=== PATIENT | female | born 1975 | race Caucasian/White ===

== ENCOUNTER 2019-07-24 14:50 | Emergency (ER) | payer OTHER, SELFPAY ==
--- NOTE | ~2019-07-24 | CT_ITS ---
EXAMINATION: CT abdomen pelvis w con DATE: 07/24/2019 16:28 INDICATION: Infection TECHNIQUE: Computed tomography (CT) of the abdomen and pelvis was performed with 100 mL Omnipaque-350 intravenous contrast. Automated exposure control and iterative reconstruction technique were employe d. The dose-length product was 349.16 mGy-cm. COMPARISON: None FINDINGS: Lung bases are clear. Heart size is normal. No pericardial or pleural effusion. Liver, gallbladder, s pleen, pancreas, bilateral adrenal glands and right kidney are normal. 6 mm low-attenuation left aury l cyst. Bowels are normal. The appendix is not visualized. No pericecal inflammatory change to sugges t acute appendicitis. Decompressed bladder, anteverted uterus and bilateral adnexa are unremarkable. No free intraperitoneal gas or fluid. No pathologically enlarged abdominal or pelvic lymphadenopathy. Transitional L5 segment which is sacralized on the left. Moderate to severe lower lumbar facet osteo arthritis. IMPRESSION: 1. No acute intra-abdominal/pelvic process. Reviewed, dictated and finalized at location A.
[2019-07-24 15:21] VITALS: BP 141/104; PULSE 72; RESP 16; TEMP 36.9; O2SAT 99
[2019-07-24 15:23] LABS: Basophils Absolute Auto 0.1 K/mm3 (0.0-0.1); Basophils Percent Auto 0.7 % (0.2-1.2); Eosinophils Percent Auto 0.3 % (0-4.4); Hematocrit 39.4 % (37.0-47.0); Hemoglobin 13.5 g/dL (12.0-15.0); Immature Granulocyte Absolute 0.04 K/mm3 (0.00-0.031); Immature Granulocyte Percent A 0.4 % (0-0.5); Lymphocytes Absolute Auto 1.43 K/mm3 (0.9-3.2); Lymphocytes Percent Auto 13.3 % (18.3-44.2); Mean Corpuscular HGB Conc 34.3 g/dl (32-36); Mean Corpuscular Hemoglobin 29.7 pg (26-34); Mean Corpuscular Volume 86.8 fl (80-100); Mean Platelet Volume 11.1 fl (7.4-10.4); Monocytes Absolute Auto 0.4 K/mm3 (0.1-0.6); Neutrophils Absolute Auto 8.8 K/mm3 (1.3-6.7); Neutrophils Percent Auto 81.3 % (45.5-73.1); Platelet Count Result 299 k/mm3 (150-375); Red Blood Count 4.54 M/mm3 (4.2-5.4); Red Cell Distribution Width 13.3 % (11.5-14.5); White Blood Count 10.8 K/mm3 (4.5-10.0)
[2019-07-24 15:35] LABS: Alanine Aminotransferase 15 U/L (4-35); Albumin Level 4.6 g/dL (3.5-5.1); Alkaline Phosphatase 110 U/L (38-126); Aspartate Amino Transferase 22 U/L (14-36); Bilirubin,Total 0.5 mg/dL (0.2-1.3); Blood Urea Nitrogen 15 mg/dL (7-17); Calcium 9.8 mg/dL (8.4-10.2); Carbon Dioxide 23 mmol/L (22-30); Chloride 108 mmol/L (98-107); Estimated CRCL calculation 83 ml/min; Estimated Glomerular Filt Rate > 60; Glucose 124 mg/dL (65-105); Lipase 31 U/L (23-300); Potassium 3.2 mmol/L (3.4-5.0); Sodium 139 mmol/L (137-145)
[2019-07-24 15:50] LABS: Add Urine Microscopic? YES; Appearance Urine Cloudy (Clear); Bilirubin Urine Negative (Negative); Blood Urine Negative (Negative); Calcium Oxalate Crystals Urine Present /hpf; Color Urine Amber (Yellow); Glucose Urine UA Negative (Negative); Ketones Urine 2+ mg/dL (Negative); Leukocyte Esterase Ur 2+ LEU/UL (Negative); Mucus Urine Heavy /lpf; Nitrate Urine Negative (Negative); Protein Urine 1+ mg/dL (Negative); Specific Grav Ur 1.032 (1.001-1.035); Squamous Epithelial Cell Urine Many /hpf (Few); WBC Urine 21-30 /hpf
--- NOTE | 2019-07-24 16:09 | PC.NURSE ---
called at this time to lab to add on CMP, Lipase, CBCD
--- NOTE | 2019-07-24 16:21 | ED.ABDPAIN ---
HPI - Abdominal Pain General Chief Complaint: Abdominal Pain Stated Complaint: abd pain Time Seen by Provider: 07/24/19 16:00 Source: patient and family Mode of arrival: ambulatory Limitations: no limitations History of Present Illness HPI narrative: 44 years old white female presented to the ED with vomiting and abdominal pain. Patient reports having history of some syndrome causing vomiting 10 years ago, she gets flareups every now and then. Patient denies any fever, chills, diarrhea. History of restless leg syndrome, appendectomy. Patient does not smoke or drink, uses marijuana. MD elicited complaint: abdominal pain Related Data Home Medications Medication Instructions Recorded Confirmed atorvastatin 07/24/19 promethazine 07/24/19 ropinirole mg 07/24/19 ropinirole mg 07/24/19 sumatriptan succinate mg PO 07/24/19 Allergies Allergy/AdvReac Type Severity Reaction Status Date / Time acetaminophen Allergy Mild Itching Verified 12/11/16 16:59 ciprofloxacin Allergy Mild Rash Verified 12/11/16 16:59 hydrocodone Allergy Mild Itching Verified 12/11/16 16:59 sulfamethoxazole Allergy Rash Verified 07/24/19 15:25 [From Bactrim] trimethoprim [From Bactrim] Allergy Rash Verified 07/24/19 15:25 Review of Systems Review of Systems: Narrative: CONSTITUTIONAL: Denies fever, chills, or sweats. EYES: Denies visual changes, redness, or discharge. ENT: Denies rhinorrhea, congestion, sore throat, or otalgia. CARDIOVASCULAR: Denies chest pain, palpitations, or edema. RESPIRATORY: Denies cough or dyspnea. GASTROINTESTINAL: Denies abdominal pain, nausea, vomiting, or diarrhea. GENITOURINARY: Denies dysuria or hematuria. SKIN: Denies rash or itching. MUSCULOSKELETAL: Denies back pain, joint pain, or myalgia. NEUROLOGIC: Denies headache, numbness, or weakness. PSYCHIATRIC: Denies anxiety or depression. Exam Narrative: Exam Narrative: General appearance: Well-developed, well-nourished, laying down in bed, looks comfortable, at the bedside. Skin: Normal color Head: Normocephalic, nontraumatic Eyes: Clear conjunctiva ENT: Oropharynx normal, ears normal, nose normal Neck: Supple, nontender Chest and respiratory: Airway patent, no respiratory distress, no accessory muscle use Heart: Regular rate/rhythm Abdomen: Soft, nontender, no organomegaly, quiet bowel sounds Vascular: Normal peripheral pulses, normal capillary refill. Musculoskeletal: Normal range of motion, nontender back Neurologic: Alert and oriented ?3, [employer] is normal as tested, no gross motor deficit Course Course Emergency Course: Improving Vital Signs Vital signs: Vital Signs Temperature 36.9 C 07/24/19 15:21 Pulse Rate 72 07/24/19 15:21 Respiratory Rate 16 07/24/19 15:21 Blood Pressure 141/104 H 07/24/19 15:21 Pulse Oximetry 99 07/24/19 15:21 Temperature 36.9 C 07/24/19 15:21 Pulse Rate 72 07/24/19 15:21 Respiratory Rate 16 07/24/19 15:21 Blood Pressure 141/104 H 07/24/19 15:21 Pulse Oximetry 99 07/24/19 15:21 MDM - Abdominal Pain MDM Narrative Medical decision making narrative: History of intermittent vomiting, raises the suspicious of cyclic vomiting syndrome. Patient reported getting better and Phenergan and pain medication. My plan to get labs, CT abdomen and pelvis, UA, start IV fluids, Dilaudid, Reglan and Benadryl. Further plan to follow Lab Data Result diagrams: 07/24/19 15:18 07/24/19 15:18 Labs: Lab Results 07/24/19 07/24/19 07/24/19 Range/Units 15:18 15:18 15:37 WBC 10.8 H (4.5-10.0) K/mm3 RBC 4.54 (4.2-5.4) M/mm3 Hgb 13.5 (12.0-15.0) g/dL Hct 39.4 (37.0-47.0) %
[2019-07-24] MEDS: ONDANSETRON INJ 4 MG/2 ML VIAL IV PUSH (16:46)
[2019-07-24] MEDS: HYDROMORPHONE HCL 1 MG/ML INJ 0.5 MG IV PUSH (16:46)
[2019-07-24] MEDS: SODIUM CHLORIDE 0.9% IV 1,000 ML 999 ML IV CONT (16:46)
[2019-07-24] MEDS: METOCLOPRAMIDE HCL INJ 10 MG/2 ML VIAL IV PUSH (16:47)
[2019-07-24] MEDS: POTASSIUM CHLORIDE 20 MEQ TABLET 40 MEQ PO (17:17)
== END 2019-07-24 18:21 | disposition home or self-care (01) ==
PROVIDERS: General Practice; Emergency Provider Emergency Medicine
DX: N39.0 Urinary tract infection, site not specified (principal); R11.10 Vomiting, unspecified
CPT/HCPCS: 36415; 74177; 80053; 81001; 81025; 83690; 85025; 87086; 96361; 96365; 96375; 99284; A9270; J0696; J1170; J1200; J2405; J2765; J7030; Q9967

== ENCOUNTER 2019-07-30 21:30 | Emergency (ER) | payer OTHER, SELFPAY ==
--- NOTE | ~2019-07-30 | CT_ITS ---
EXAMINATION: CT abdomen pelvis w con DATE: 07/31/2019 01:37 INDICATION: Epigastric pain. SMA syndrome. TECHNIQUE: Computed tomography (CT) of the abdomen and pelvis was performed with 100 mL Omnipaque-350 intravenous contrast. Automated exposure control and iterative reconstruction technique were employe d. The dose-length product was 472.58 mGy-cm. COMPARISON: 07/24/2019 FINDINGS: 5 mm subpleural nodule at the right posterior sulcus. Heart size is normal. No pericardial or pleural effusion. Focal hepatic steatosis at the ligamentum teres. 4 mm cyst at the right hepatic lobe. Gall bladder, spleen, pancreas, bilateral adrenal glands and right kidney are normal. 6 mm left renal cyst . Bowels are unremarkable. The appendix is not visualized. No pericecal inflammatory change to sugges t acute appendicitis. Decompressed bladder and anteverted uterus are normal. 2.9 x 2.0 cm septated ri ght ovarian cyst which is new since the prior study. 1.5 cm peripherally enhancing likely corpus lute um cyst at the left ovary. Small amount of likely physiologic free fluid in the pelvis. No abscess or free intraperitoneal gas. No pathologically enlarged abdominal or pelvic lymphadenopathy. Transition al L5 segment which is sacralized on the left. Moderate lower lumbar facet osteoarthritis. IMPRESSION: 1. Small bilateral ovarian cysts and small amount of likely physiologic free fluid in the pelvis. No other acute intra-abdominal/pelvic process. 2. 5 mm right lower lobe nodule. If the patient is low risk for lung cancer, no follow-up is needed. If the patient is high risk (i.e., history of smoking or asbestos or significant radiation exposure), optional follow-up chest CT could be considered at 12 months. Reviewed, dictated and finalized at location A. IMPRESSION: 1. Small bilateral ovarian cysts and small amount of likely physiologic free fl uid in the pelvis. No other acute intra-abdominal/pelvic process. 2. 5 mm right lower lobe nodule. If the patient is low risk for lung cancer, no follow-up is needed. If the patient is high risk (i.e., history of smoking or asbestos or significant radiation exposure), optional follow-up chest CT could be considered at 12 months.
[2019-07-30 21:40] VITALS: BP 143/91; PULSE 68; RESP 18; TEMP 36.3; O2SAT 100
--- NOTE | 2019-07-31 00:02 | ED.GENADULT ---
HPI - General Adult General Chief complaint: Nausea/Vomiting/Diarrhea Stated complaint: vomiting/abd pain Time Seen by Provider: 07/30/19 23:35 History of Present Illness HPI narrative: Patient is a 44-year-old female who presents ER with epigastric pain. 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 Last started having flares 3 years ago but then 1 week ago she began having her pain again. Typically she can take her Zofran and symptoms will go away. Has not been the case this evening. Pain is sharp and nonradiating. No association with eating or drinking. She has recently moved here from [place] and does not have a specialist that she sees. No diarrhea. Related Data Home Medications Medication Instructions Recorded Confirmed atorvastatin 07/24/19 promethazine 07/24/19 ropinirole mg 07/24/19 ropinirole mg 07/24/19 sumatriptan succinate mg PO 07/24/19 Allergies Allergy/AdvReac Type Severity Reaction Status Date / Time acetaminophen Allergy Mild Itching Verified 07/30/19 21:43 ciprofloxacin Allergy Mild Rash Verified 07/30/19 21:43 hydrocodone Allergy Mild Itching Verified 07/30/19 21:43 sulfamethoxazole Allergy Rash Verified 07/30/19 21:43 [From Bactrim] trimethoprim [From Bactrim] Allergy Rash Verified 07/30/19 21:43 Review of Systems Review of Systems: All systems reviewed & are unremarkable except as noted in HPI and below Constitutional: Constitutional: Denies chills, Denies fever(s) and Denies weakness ENT: Denies nasal congestion and Denies sore throat Cardiovascular: Cardiovascular: Denies chest pain and Denies rapid heart rate Respiratory: Respiratory: Denies cough, Denies dyspnea and Denies wheezing Gastrointestinal: Gastrointestinal: Reports abdominal pain, Denies diarrhea, Reports nausea and Reports vomiting Genitourinary: Genitourinary: Denies nocturia and Denies dysuria [facility] Past Medical History Medical History (Updated 07/31/19 @ 02:57 by Ralf Elise MD) SMAS (superior mesenteric artery syndrome) Surgical History Surgical History (Updated 07/31/19 @ 01:12 by Ralf Elise MD) H/O endoscopy History of colonoscopy Social History Social History (Updated 07/31/19 @ 01:12 by Ralf Elise MD) Substance use type: marijuana Exam Narrative: Exam Narrative: GENERAL: Uncomfortable-appearing, well-nourished, and in no acute distress. HEAD: Normocephalic, atraumatic. ENT: Mucous membranes moist. CHEST: Clear to auscultation. No respiratory distress. HEART: Regular rate and rhythm. Normal peripheral pulses. ABDOMEN: Soft, mild tenderness epigastrium without guarding, nondistended, normal active bowel sounds. EXTREMITIES: Normal range of motion. No edema. SKIN: Warm, dry, no rash. NEURO: Alert and oriented x3. Course Course Emergency Course: Informed of results. Discharge home. Vital Signs Vital signs: Vital Signs Temperature 97.3 F L 07/30/19 21:40 Pulse Rate 68 07/30/19 21:40 Respiratory Rate 18 07/30/19 21:40 Blood Pressure 143/91 H 07/30/19 21:40 Pulse Oximetry 100 07/30/19 21:40 Temperature 97.3 F L 07/30/19 21:40 Pulse Rate 74 07/31/19 01:57 Respiratory Rate 16 07/31/19 01:57 Blood Pressure 119/96 H 07/31/19 01:57 Pulse Oximetry 99 07/31/19 01:57 Medical Decision Making Vital Signs Vital Signs: Vital Signs Temperature 97.3 F L 07/30/19 21:40 Pulse Rate 68 07/30/19 21:40 Respiratory Rate 18 07/30/19 21:40 Blood Pressure 143/91 H 07/30/19 21:40 Pulse Oximetry 100 07/30/19 21:40 Temperature 97.3 F L 07/30/19 21:40 Pulse Rate 74 07/31/19 01:57 Respiratory Rate 16 07/31/19 01:57 Blood Pressure 119/96 H 07/31/19 01:57 Pulse Oximetry 99 07/31/19 01:57 Lab Data Result diagrams: 07/31/19 00:24 07/31/19 00:24 Labs: Lab Results 07/31/19 07/31/19 07/31/19 Range/Units 00:24 00:24 00:24 WBC 12.8 H (4
[2019-07-31 00:05] VITALS: BP 149/105; PULSE 68; RESP 17; O2SAT 100
[2019-07-31] MEDS: SODIUM CHLORIDE 0.9% IV 1,000 ML 999 ML IV CONT (00:20)
[2019-07-31] MEDS: MORPHINE SULFATE 4 MG/ML INJ IV PUSH (00:21)
[2019-07-31] MEDS: PROMETHAZINE HCL 25 MG/ML AMPUL 12.5 MG IV PUSH (00:21)
[2019-07-31 00:30] LABS: Basophils Absolute Auto 0.1 K/mm3 (0.0-0.1); Basophils Percent Auto 0.7 % (0.2-1.2); Eosinophils Percent Auto 0.2 % (0-4.4); Hematocrit 41.4 % (37.0-47.0); Hemoglobin 14.1 g/dL (12.0-15.0); Immature Granulocyte Absolute 0.06 K/mm3 (0.00-0.031); Immature Granulocyte Percent A 0.5 % (0-0.5); Lymphocytes Absolute Auto 1.42 K/mm3 (0.9-3.2); Lymphocytes Percent Auto 11.1 % (18.3-44.2); Mean Corpuscular HGB Conc 34.1 g/dl (32-36); Mean Corpuscular Hemoglobin 29.9 pg (26-34); Mean Corpuscular Volume 87.9 fl (80-100); Mean Platelet Volume 11.5 fl (7.4-10.4); Monocytes Absolute Auto 0.6 K/mm3 (0.1-0.6); Monocytes Percent Auto 4.8 % (2.6-8.5); Neutrophils Absolute Auto 10.5 K/mm3 (1.3-6.7); Neutrophils Percent Auto 82.7 % (45.5-73.1); Platelet Count Result 285 k/mm3 (150-375); Red Blood Count 4.71 M/mm3 (4.2-5.4); Red Cell Distribution Width 13.9 % (11.5-14.5); White Blood Count 12.8 K/mm3 (4.5-10.0)
[2019-07-31 00:42] LABS: Potassium 4.1 mmol/L (3.4-5.0)
[2019-07-31 00:45] LABS: Alanine Aminotransferase 16 U/L (4-35); Albumin Level 4.9 g/dL (3.5-5.1); Alkaline Phosphatase 111 U/L (38-126); Aspartate Amino Transferase 26 U/L (14-36); Bilirubin,Total 0.5 mg/dL (0.2-1.3); Blood Urea Nitrogen 16 mg/dL (7-17); Calcium 10.1 mg/dL (8.4-10.2); Carbon Dioxide 24 mmol/L (22-30); Chloride 107 mmol/L (98-107); Estimated CRCL calculation 83 ml/min; Estimated Glomerular Filt Rate > 60; Glucose 147 mg/dL (65-105); Lipase 46 U/L (23-300); Sodium 140 mmol/L (137-145)
[2019-07-31 01:00] VITALS: BP 105/58; PULSE 55; RESP 18; O2SAT 100
[2019-07-31 01:36] LABS: Add Urine Microscopic? YES; Appearance Urine Cloudy (Clear); Bacteria Urine Trace /hpf; Bilirubin Urine Negative (Negative); Blood Urine Negative (Negative); Budding Yeast Urine Present /hpf; Color Urine Yellow (Yellow); Glucose Urine UA Negative (Negative); Ketones Urine 1+ mg/dL (Negative); Leukocyte Esterase Ur Trace LEU/UL (Negative); Mucus Urine Rare /lpf; Nitrate Urine Negative (Negative); Protein Urine 1+ mg/dL (Negative); Specific Grav Ur 1.015 (1.001-1.035); Squamous Epithelial Cell Urine Moderate /hpf (Few); Urobilinogen Urine Negative mg/dL (<2.0)
[2019-07-31 01:57] VITALS: BP 119/96; PULSE 74; RESP 16; O2SAT 99
[2019-07-31] MEDS: ONDANSETRON INJ 4 MG/2 ML VIAL IV PUSH (01:57)
[2019-07-31 03:15] VITALS: BP 119/73; PULSE 78; RESP 16; TEMP 36.6; O2SAT 99
[2019-07-31] MEDS: KETOROLAC 15 MG/ML VIAL (*BKC) IV PUSH (03:15)
== END 2019-07-31 03:16 | disposition home or self-care (01) ==
PROVIDERS: Emergency Provider Emergency Medicine; PCP Physician Assistant
DX: R10.13 Epigastric pain (principal); K55.1 Chronic vascular disorders of intestine; N83.201 Unspecified ovarian cyst, right side
CPT/HCPCS: 36415; 74177; 80053; 81001; 81025; 83605; 83690; 85025; 87086; 96361; 96374; 96375; 99284; J1885; J2270; J2405; J2550; J7030; Q9967

== ENCOUNTER 2019-08-01 13:27 | Emergency (ER) | payer OTHER, SELFPAY ==
[2019-08-01 13:31] VITALS: BP 171/93; PULSE 65; RESP 18; TEMP 36.9; O2SAT 100
[2019-08-01 13:52] LABS: Glucose Point of Care 89 (65-105)
[2019-08-01 13:57] LABS: Basophils Absolute Auto 0.1 K/mm3 (0.0-0.1); Basophils Percent Auto 0.6 % (0.2-1.2); Eosinophils Absolute Auto 0.1 K/mm3 (0-0.3); Eosinophils Percent Auto 0.6 % (0-4.4); Hematocrit 41.9 % (37.0-47.0); Hemoglobin 14.2 g/dL (12.0-15.0); Immature Granulocyte Absolute 0.05 K/mm3 (0.00-0.031); Immature Granulocyte Percent A 0.4 % (0-0.5); Lymphocytes Absolute Auto 1.59 K/mm3 (0.9-3.2); Lymphocytes Percent Auto 12.6 % (18.3-44.2); Mean Corpuscular HGB Conc 33.9 g/dl (32-36); Mean Corpuscular Hemoglobin 29.8 pg (26-34); Mean Platelet Volume 11.3 fl (7.4-10.4); Monocytes Absolute Auto 0.5 K/mm3 (0.1-0.6); Monocytes Percent Auto 4.2 % (2.6-8.5); Neutrophils Absolute Auto 10.3 K/mm3 (1.3-6.7); Neutrophils Percent Auto 81.6 % (45.5-73.1); Platelet Count Result 270 k/mm3 (150-375); Red Blood Count 4.76 M/mm3 (4.2-5.4); White Blood Count 12.6 K/mm3 (4.5-10.0)
[2019-08-01] MEDS: FAMOTIDINE 20 MG/2 ML VIAL IV PUSH (13:58)
[2019-08-01] MEDS: PROCHLORPERAZINE EDISYLATE 10 MG/2 ML VIAL IV PUSH (13:59)
[2019-08-01] MEDS: KETOROLAC 30 MG/ML VIAL (*BKC) IV PUSH (14:00)
[2019-08-01] MEDS: SODIUM CHLORIDE 0.9% IV 1,000 ML 999 ML IV CONT (14:01)
[2019-08-01 14:11] LABS: Alanine Aminotransferase 15 U/L (4-35); Albumin Level 4.6 g/dL (3.5-5.1); Alkaline Phosphatase 98 U/L (38-126); Aspartate Amino Transferase 25 U/L (14-36); Bilirubin,Total 0.5 mg/dL (0.2-1.3); Blood Urea Nitrogen 13 mg/dL (7-17); Calcium 9.2 mg/dL (8.4-10.2); Carbon Dioxide 23 mmol/L (22-30); Chloride 105 mmol/L (98-107); Estimated CRCL calculation 83 ml/min; Estimated Glomerular Filt Rate > 60; Glucose 103 mg/dL (65-105); Lipase 54 U/L (23-300); Potassium 3.2 mmol/L (3.4-5.0); Sodium 136 mmol/L (137-145)
--- NOTE | 2019-08-01 14:21 | ED.ABDPAIN ---
HPI - Abdominal Pain General Chief Complaint: Abdominal Pain Stated Complaint: N/V abd pain Time Seen by Provider: 08/01/19 13:42 Source: patient Mode of arrival: ambulatory Limitations: no limitations History of Present Illness HPI narrative: Patient is a 44-year-old female who returns back to emergency department for evaluation of continued nausea and vomiting had CAT scan imaging in the emergency department which was unremarkable for anything acute no high risk changes in the blood work or imaging patient woke again with continued nausea and vomiting consistent with her superior mesenteric syndrome. Related Data Home Medications Medication Instructions Recorded Confirmed atorvastatin [Lipitor] 10 mg PO 07/24/19 promethazine 07/24/19 ropinirole mg 07/24/19 ropinirole mg 07/24/19 Allergies Allergy/AdvReac Type Severity Reaction Status Date / Time acetaminophen Allergy Mild Itching Verified 08/01/19 13:35 ciprofloxacin Allergy Mild Rash Verified 08/01/19 13:35 hydrocodone Allergy Mild Itching Verified 08/01/19 13:35 sulfamethoxazole Allergy Rash Verified 08/01/19 13:35 [From Bactrim] trimethoprim [From Bactrim] Allergy Rash Verified 08/01/19 13:35 Review of Systems Review of Systems: All systems reviewed & are unremarkable except as noted in HPI and below PMFSH Past Medical History Medical History SMAS (superior mesenteric artery syndrome) Surgical History Surgical History H/O endoscopy History of colonoscopy Social History Social History Substance use type: marijuana Gender identity (if verbalized by the patient): Female Exam Narrative: Exam Narrative: GENERAL: Well-appearing, well-nourished, and in no acute distress. HEAD: Normocephalic, atraumatic. EYES: PERRLA and EOMI. ENT: Nares clear, no rhinorrhea or epistaxis. Mucous membranes moist. NECK: Supple. No adenopathy or masses. CHEST: Clear to auscultation. No respiratory distress. No wheezes rales or rhonchi HEART: Regular rate and rhythm. No murmur heard. Normal peripheral pulses. ABDOMEN: Soft, generalized tenderness no rebound or guarding, nondistended EXTREMITIES: Normal range of motion. No edema. SKIN: Warm, dry, no rash. NEURO: No focal deficits. Alert and oriented x3. Cranial nerves II through XII grossly intact PSYCH: Normal mood and affect. Course Course Emergency Course: Patient in the room in no distress aware of case findings treatment plan and diagnosis agreeing to follow-up as directed Vital Signs Vital signs: Vital Signs Temperature 98.4 F 08/01/19 13:31 Pulse Rate 65 08/01/19 13:31 Respiratory Rate 18 08/01/19 13:31 Blood Pressure 171/93 H 08/01/19 13:31 Pulse Oximetry 100 08/01/19 13:31 Temperature 98.4 F 08/01/19 13:31 Pulse Rate 86 08/01/19 14:56 Respiratory Rate 22 H 08/01/19 14:56 Blood Pressure 148/84 H 08/01/19 14:56 Pulse Oximetry 99 08/01/19 14:56 MDM - Abdominal Pain MDM Narrative Medical decision making narrative: Patient resting comfortably in the room feeling better at this time tolerating p.o. intake afebrile nontoxic-appearing no distress felt appropriate for outpatient reevaluation. Patient given GI and gynecology follow-up. Patient given fluids and Rocephin in the emergency department. Provided with reasons to return Differential Diagnosis Differential diagnosis: Likely abdominal pain, acute appendicitis, calculus of kidney, diverticulitis, endometriosis, gastroenteritis, pancreatitis and small bowel obstruction Lab Data Result diagrams: 08/01/19 13:51 08/01/19 13:51 Labs: Lab Results 08/01/19 08/01/19 08/01/19 Range/Units 13:50 13:51 13:51 WBC 12.6 H (4.5-10.0) K/mm3 RBC 4.76 (4.2-5.4) M/mm3 Hgb 14.2 (12.0-15.0) g/dL Hct 41.9 (
[2019-08-01 14:25] LABS: Add Urine Microscopic? YES; Appearance Urine Cloudy (Clear); Bacteria Urine Trace /hpf; Bilirubin Urine Negative (Negative); Blood Urine Negative (Negative); Color Urine Yellow (Yellow); Glucose Urine UA Negative (Negative); Ketones Urine 1+ mg/dL (Negative); Leukocyte Esterase Ur 3+ LEU/UL (Negative); Mucus Urine Moderate /lpf; Nitrate Urine Negative (Negative); Protein Urine 2+ mg/dL (Negative); RBC Urine 21-50 /hpf (0-2); Specific Grav Ur 1.025 (1.001-1.035); Squamous Epithelial Cell Urine Many /hpf (Few); Transitional Epi Cells Urine Rare /hpf (None Seen); Urobilinogen Urine Negative mg/dL (<2.0); WBC Urine >75 /hpf
[2019-08-01 14:56] VITALS: BP 148/84; PULSE 86; RESP 22; O2SAT 99
[2019-08-01 16:08] VITALS: BP 159/87; PULSE 81; RESP 14; O2SAT 100
== END 2019-08-01 16:15 | disposition home or self-care (01) ==
PROVIDERS: Emergency Medicine Emergency Medical Services; Emergency Provider Emergency Medicine; PCP Physician Assistant
DX: N39.0 Urinary tract infection, site not specified (principal)
CPT/HCPCS: 36415; 80053; 81001; 81025; 82948; 83690; 85025; 87086; 96361; 96365; 96375; 99284; J0696; J0780; J1885; J2060; J7030

== ENCOUNTER 2020-03-11 12:51 | Outpatient (CLI) | payer OTHER, SELFPAY ==
--- NOTE | ~2020-03-11 | MMUS_ITS ---
EXAMINATION: MM diagnostic juana BI w katy, US breast BI limited HISTORY: Palpable lumps of the upper right breast at the 12:00 location and the lower-outer quadrant of the left breast TECHNIQUE: Craniocaudal, mediolateral, and mediolateral oblique 3-D tomosynthesis images of the breas ts were performed and synthetic 2-D images were generated. CAD analysis was submitted and interpreted . High resolution limited bilateral breast ultrasound was performed. COMPARISON: None, baseline BREAST PARENCHYMAL COMPOSITION: The breasts are heterogeneously dense, which may obscure small masses . FINDINGS: MAMMOGRAPHIC FINDINGS: Right breast: There is no evidence of suspicious mass, calcification, or architectural distortion to suggest malignancy. No mammographic correlate is identified for the reported palpable abnormality of concern. Left breast: There are coarse heterogeneous and fine pleomorphic calcifications spanning a 3 cm segme nt of the lower breast at the 5-6 o'clock location 5 cm from the nipple in the area of the palpable a bnormality. There appear to be subtle obscured masses associated with the calcifications. No architec tural distortion is identified. ULTRASOUND: Right breast: There is no evidence of focal abnormal solid or cystic lesion in the vicinity of the re ported palpable abnormality of concern. Left breast: There is an 8 mm x 5 mm oval, parallel, hypoechoic mass with angular margins at the 4:00 location 7 cm from the nipple with no posterior features or internal vascularity. There is an approx imately 2.1 x 0.8 cm hypoechoic, parallel mass containing multiple calcifications at the 4:00 locatio n 5 cm from the nipple. This mass demonstrates internal vascularity and posterior acoustic shadowing. IMPRESSION: 1. Adjacent masses and suspicious calcifications in the left breast corresponding to the palpable abn ormality. Ultrasound guided biopsy is recommended. 2. No specific mammographic or sonographic correlate is identified for the reported palpable abnormal ity concern in the right breast. Further evaluation at this time should be based on clinical assessme nt. Continued follow-up physical examination is recommended. BI-RADS category 5, highly suggestive of malignancy. Reviewed, dictated and finalized at location A. [employer]CI[employer] INTERNIST IMPRESSION: 1. Adjacent masses and suspicious calcifications in the left breast correspondi ng to the palpable abnormality. Ultrasound guided biopsy is recommended. 2. No specific mammographic or sonographic correlate is identified for the repo rted palpable abnormality concern in the right breast. Further evaluation at th is time should be based on clinical assessment. Continued follow-up physical ex amination is recommended. BI-RADS category 5, highly suggestive of malignancy.
== END 2020-03-11 12:52 | disposition home or self-care (01) ==
LOC: ANHIMG 12:57
PROVIDERS: PCP Physician Assistant; Visit Provider Physician Assistant
DX: R92.8 Other abnormal and inconclusive findings on diagnostic imaging of breast (principal)
CPT/HCPCS: 76642; 77062; 77066; G0279

== ENCOUNTER 2024-09-11 14:03 | Emergency (ER) | payer OTHER, SELFPAY ==
--- NOTE | ~2024-09-11 | CT_ITS ---
CLINICAL INDICATION: Abdominal pain. COMPARISON: 07/31/2019 and 07/24/2019. TECHNIQUE: Computed tomography angiography (CTA) of the chest was performed with 100 mL Omnipaque-350 intravenous contrast timed to evaluate the abdominal aorta and mesenteric vasculature. Coronal maxim um intensity projection 3D-reconstructions were created by the technologist. The dose-length product (DLP) was 895.65 mGy-cm. Automated exposure control and iterative reconstruction technique were emplo yed. FINDINGS/OBSERVATIONS: Visualized lower thorax: The bilateral lung bases are clear. The heart is of normal size, without pericardial effusion. Small hiatal hernia is present. Liver: The liver enhances homogeneously and is not enlarged. Gallbladder and biliary system: The gallbladder is only minimally distended, and otherwise unremarkable. Pancreas: The pancreas enhances homogeneously without ductal dilatation. Spleen: Spleen demonstrates homogeneous enhancement, without enlargement. Kidneys: The bilateral kidneys enhance symmetrically, without hydronephrosis or renal calculi.. Adrenal glands: Unremarkable. Gastrointestinal tract: Edematous mural thickening within the nondistended ascending and transverse colon with trace surround ing inflammatory change, findings representing a short segment colitis for which clinical correlation is needed. Remaining bowel loops are unremarkable. Appendix: The appendix is not definitively visualized. However, no pericecal inflammatory change is identified suggest the presence of acute appendicitis. Vasculature: No cross-sectional imaging evidence to support the reported diagnosis of SMA syndrome. The superior mesenteric artery branches prior to the duodenal sweep, which is located at the level of the aortic bifurcation, not beneath the superior mesenteric artery. The left renal vein is compressed between the superior mesenteric artery and the abdominal aorta, wit hout sequelae. There is some evidence of median arcuate ligament syndrome, as the celiac trunk originates high on th e abdominal aorta, with the takeoff at the level of the diaphragmatic madhavi. Following the caliber of the celiac axis from its origin on the abdominal aorta, no discrete stenosis is appreciated, and no poststenotic dilatation is noted. Lymph nodes: No pathologically enlarged or morphologically suspicious lymph nodes within the retroperitoneum or at the root of the mesentery. Pelvic structures: The bladder is only minimally distended. The uterus is anteverted and anteflexed and otherwise unremarkable. Body wall and musculoskeletal: No significant degenerative disease within the lower thoracic and lumbosacral spines. IMPRESSION: Findings suggesting short segment colitis within the ascending and transverse colons for which clinic al correlation is needed regarding lower abdominal pain. No cross-sectional imaging evidence to support the reported diagnosis of SMA syndrome, as detailed ab ove. Findings which may represent median arcuate ligament syndrome, given the high takeoff of the celiac a xis. Although, no discrete stenosis is appreciated within the celiac axis and no post stenotic dilata tion is present. Elective surgical consultation/follow-up may be performed. Reviewed, dictated and finalized at location A. IMPRESSION: Findings suggesting short segment colitis within the ascending and transverse c olons for which clinical correlation is needed regarding lower abdominal pain. No cross-sectional imaging evidence to support the reported diagnosis of SMA sy ndrome, as detailed above. Findings which may represent median arcuate ligament syndrome, given the high t akeoff of the celiac axis. Although, no discrete stenosis is appreciated within the celiac axis and no post stenotic dilatation is present. Elective surgical consultation/follow-up may be performed.
[2024-09-11 14:09] VITALS: BP 178/86; PULSE 97; RESP 18; TEMP 36.4; O2SAT 98
--- OUTSIDE RECORDS SUMMARY | 2024-09-11 14:11 | XMS_ITS ---
Author Organization [facility] Address [address] [place] [address] Care Team Providers Care Mobile Device Developer Name Role Phone Ralf Medel MD Unavailable Nicole Briseno MD PhD Unavailable [phone] Berry Riley MD Primary Care Provider + Active Problems Problem Noted Date Diagnosed Date Screening for colon cancer 09/10/2024 Absence of both breasts 07/26/2022 Absence of breast, bilateral 02/23/2022 Hx of breast reconstruction 12/09/2021 Overview (12/09/2021): Added automatically from request for surgery [id number] jail (current) use of s elective estrogen receptor modulators (serms) 06/23/2021 Pain in left foot 06/11/2021 Neuropathy 06/11/2021 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 05/04/2021 Overview (05/04/2021): Added automatically from request for surgery [id number] Encounter for follow-up exam ination after completed treatment for malignant neoplasm 03/13/2021 Personal history of irradiation 03/13/2021 Anemia 12/12/2020 Encounter for person encountering health service s 09/12/2020 Personal history of malignant neoplasm of breast 08/27/2020 Absence of breast, acquired, bilateral Malignant neoplasm of lower- outer quadrant of left breast of female, estrogen receptor positive 05/03/2020 Cancer Staging:Pathologic:Stage IA(pT1c, pN1a, cM0, G2, ER+, CO+, HER2+) - Signed by Nicole Briseno MD PhD on 01/23/2021 Gastroesophageal reflux disease without esophagi tis 12/26/2019 Assessment & Plan (06/26/2020 1:10 PM CDT): -doing well on once a day PPI therapy will continue. She is feeling better in terms of her GI symptoms . Nausea is resolved. Her abdominal pain is resolved and she is pain free. She does not have any other GI symptoms. She is gaining weight at this time. 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 She is feeling better in terms of her GI symptoms after a long time. Her son nausea is resolved. Her abdominal pain is resolved and she is pain free. She does not have any other GI symptoms. She is gaining weight at this time. She is extremely pleased with the progress. -Will try to decrease the dose of omeprazole during next clinic visit. Weight loss 09/26/2019 Assessment & Plan (09/26/2019 12:34 PM CDT): -encouraged her to maintain a calorie intake despite working hard. Will slide maker ensure/diet supplement a twice a day for a period of 3 months. Will reassess in 3 months time. Discussed with her various things and measures that she can do to maintain a calorie intake while she is working such as making crack part meals, taking smoothies at work etc were discussed. Gastritis 08/23/2019 Nausea with vomiting 08/16/2019 Overview (08/16/2019): Added automatically from request for surgery [id number] History of colon polyps 08/15/2019 Assessment & Plan (06/26/2020 1:11 PM CDT): Colonoscopy, August of 2019,- Preparation of the colon was fair. - The examined portion of the ileum was normal. - The entire examined colon is normal on direct and retroflexion views. - No specimens collected. Repeat recommended in 2021. Assessment & Plan (08/15/2019 1:37 PM CDT): -will schedule for a colonoscopy for further evaluation. Nausea 08/15/2019 Assessment & Plan (06/26/2020 1:11 PM CDT): -symptom resolved. She will continue with the recommendations made on the previous clinic visits. Assessment & Plan (09/26/2019 12:33 PM CDT): -symptom improved from before. Nausea while having a bowel movement along with the feeling of thinking and diaphoresis? Vagal response? -will give a methylcellulose to be used on a daily basis. -have recommended her trial of drinking warm honey water with lemon juice Plus minus the pinch of salt in the morning. These 2 measures will hopefully help her with her vagal response with the bowel movement. Will reassess the symptoms in 3 months. Assessment & Plan (08/15/2019 1:36 PM CDT): -not sure of the etiology of nausea and vomiting at this time. Could be the cyclic vomiting syndrome secondary to use of marijuana? I did provide her with the above med article secondary to that. She was not convinced about this. -could be part of her migraine? She does report feeling extremely sick when her migraine comes up. Could it be a manifestation of the migraine without headaches? -for symptomatic relief will give her Zofran 4 mg 3 times a day on a regular basis for next one month. -will schedule her for an upper endoscopy for further evaluation will do biopsies for celiac and H pylori at that time and will evaluate for gastroesophageal reflux disease. -also recommended a therapeutic trial with the methylcellulose to be used on a daily basis this will act as a prebiotic. Weight gain 08/15/2019 SMAS (superior mesenteric artery syndrome) 08/14 Assessment & Plan (06/26/2020 1:11 PM CDT): -asymptomatic. She will continue with recommendations made on initial clinic visit. Assessment & Plan (08/15/2019 1:37 PM CDT): -given her normal weight, this appears to be unlikely? If the concerns remain will proceed with imaging for further evaluation. Cyst of ovary 08/06/2019 Lung nodule 08/06/2019 Anxiety 03/21/2019 Hyperlipidemia 03/21/2019 Restless legs 03/21/2019 Lentigines 04/27/2017 Multiple benign melanocytic nevi 04/27/2017 Current Treatment and Therapy Plans No current plan information found. Past Treatment and Therapy Plans Line Care Plan Name Start Date Discontinue Date Treatment Medications Discontinue Reason Plan Provider Alteplase (CATHFLO ACTIVASE) - orders for occluded catheters 05/15/2021 09/05/2023 No medications scheduled. Therapy Complete Roxana Deal MD Oncology Chemotherapy Treatment Plan Name Start Date Discontinue Date Treatment Medications Discontinue Reason Plan Provider Cycles Leuprolide 84 Day Cycles - Breast 03/11/2023 03/10/2023 leuprolide (3 month) (LUPRON) Provider Discretion Ralf Medel MD Treatment not started Ado-Trastuzuma b Emtansine (Kadcyla) 21 Day Cycles - Breast 2 02/22/2022 ado-trastuzuma b emtansine (KADCYLA)ado-t rastuzumab emtansine (KADCYLA) IVPB Therapy Complete Ralf Medel MD 14 of 14 cycles started TCHP: (DOCEtaxel / CARBOplatin / Trastuzumab / Pertuzumab) 21 Day Cycles - Breast 1 01/16/2021 CARBOplatin (PARAPLATIN) IVPB in 250 mLDOCEtaxel (TAXOTERE) IVPB in 250 mL (vial 20mg/mL)pertuz umab (PERJETA)pertu zumab (PERJETA) IVPBtrastuzuma b-qyyp (TRAZIMERA)tra stuzumab-qyyp (TRAZIMERA) IVPB Therapy Complete Ralf Medel MD 6 of 18 cycles started Radiation Treatments * Course C1 LEFT CW 202002/12/2021 - 03/05/2021 Treatment Period Energy Fraction Dose Fractions Total Dose Plans Planned LEFT CW_LNs 02/12/2021 - 03/05/2021 266 16 / 4,256 Reference Points Delivered LEFT CW LN 02/12/2021 - 03/05/2021 4,256 Lifetime Dose Tracking * Chemical Lifetime Dose Automatic Entry Manual Entr y Fluoro Time 0.352 minutes 0.352 minutes 0 minutes Air kerma at the reference point (Ka,r) 2.05 mGy 2 .05 mGy 0 mGy DLP 1,222 mGycm 1,222 mGycm 0 mGycm Resolved Problems Problem Noted Date Diagnosed Date Resolved Date Malignant neoplasm of left female breast 04/01/2020 07/28/2021
--- OUTSIDE RECORDS SUMMARY | 2024-09-11 14:11 | XMS_ITS | Referral Summary ---
Author Organization [facility] Address [address] [place] [address] Care Team Providers Care Brands Editor Name Role Phone Ralf Medel MD Unavailable Nicole Briseno MD PhD Unavailable [phone] Berry Riley MD Primary Care Provider + Encounters Date Type Department Care Team Description 09/10/2024 Telephone [facility] [address] [place] [address] Ledy Huang 09/10/2024 Telephone [facility] Gastroenterology at [address] [place] [address] Britney Rainey LPN 08/07/2024 Telephone [facility] Oncology [address] [place] [phone] Marcela Hines, parts control clerk refill 08/07/2024 Orders Only [facility] Oncology [address] [place] [phone] Marcela Hines, RN 07/11/2024 10:30 AM CDT Lab [facility] Cancer Novelty - Lab Collection [address] [facility] 5 [place] [address] Malignant neoplasm of lower-outer quadrant of left breast of female, estrogen receptor positive (HCC) 07/11/2024 11:00 AM CDT Office Visit [facility] Oncology [address] [facility] Floor 8 [place] [phone] Ralf Medel MD Malignant neoplasm of lower-outer quadrant of left breast of female, estrogen receptor positive (HCC) (Primary Dx) 07/11/2024 10:00 AM CDT Clinical Support [facility] Oncology Lab [address] [address] Malignant neoplasm of lower-outer quadrant of left breast of female, estrogen receptor positive (HCC) from Last 3 Months Allergies Active Allergy Reactions Criticality Noted Date Comments Ciprofloxacin Rash Medium 04/30/2020 Sulfa (Sulfonamide Antibiotics) Itching,Rash Medium Bactrim Medications fexofenadine (TYRON) 180 mg tablet Take 1 tablet (180 mg total) by mouth as needed (allergies) Active cetirizine (ZyrTEC) 10 mg tablet Take 1 tablet (10 mg total) by mouth as needed for allergies Active naproxen (ALEVE) 220 mg tablet Take 1 tablet (220 mg total) by mouth as needed for pain Active ibuprofen (ADVIL,MOTRIN) 200 mg tab/cap Take 2 tablet/capsule (400 mg total) by mouth every 6 (six) hours as needed for pain Active tamoxifen (NOLVADEX) 20 mg tabletIndicatio ns:Malignant neoplasm of lower-outer quadrant of left breast of female, estrogen receptor positive (HCC) Take 1 tablet by mouth once daily 30 tablet 11 4 Active Additional Information Patient taking differently: No details specified, Informant: Self, Reported on 07/11/2024 oxyCODONE (ROXICODONE) 5 mg immediate release tabletIndicatio ns:Pain Take 1 tablet (5 mg total) by mouth every 6 (six) hours as needed for pain 8 tablet 4 Active lisinopriL (PRINIVIL,ZESTR IL) 20 mg tablet Take 1 tablet (20 mg total) by mouth daily 30 tablet 5 4 Active omeprazole (PriLOSEC) 40 mg capsule Take 1 capsule by mouth once daily 30 capsule 5 Active venlafaxine (EFFEXOR) 75 mg tablet Take 1 tablet (75 mg total) by mouth 2 (two) times a day 60 tablet 3 5 Active Active Problems Problem Noted Date Diagnosed Date Screening for colon cancer 09/10/2024 Absence of both breasts 07/26/2022 Absence of breast, bilateral 02/23/2022 Hx of breast reconstruction 12/09/2021 Overview (12/09/2021): Added automatically from request for surgery [id number] terminologist (current) use of s elective estrogen receptor modulators (serms) 06/23/2021 Pain in left foot 06/11/2021 Neuropathy 06/11/2021 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/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 Overview (05/04/2021): Added automatically from request for surgery [id number] Encounter for follow-up exam ination after completed treatment for malignant neoplasm 03/13/2021 Personal history of irradiation 03/13/2021 Anemia 12/12/2020 Encounter for person encountering health service s 09/12/2020 Personal history of malignant neoplasm of breast 08/27/2020 Absence of breast, acquired, bilateral Malignant neoplasm of lower- outer quadrant of left breast of female, estrogen receptor positive 05/03/2020 Cancer Staging:Pathologic:Stage IA(pT1c, pN1a, cM0, G2, ER+, OK+, HER2+) - Signed by Nicole Briseno MD [...] time. Assessment & Plan (12/26/2019 12:10 PM PRODUCT ADVISOR): -doing well on once a day PPI [...] a calorie intake despite working hard. Will home care giver ensure/diet supplement a twice a day for [...] (08/16/2019): Added automatically from request for surgery [id number] History of colon polyps 08/15/2019 Assessment & [...] Lentigines 04/27/2017 Multiple benign melanocytic nevi 04/27/2017 Resolved Problems Problem Noted Date Diagnosed Date Resolved Date Malignant neoplasm of left female breast 04/01/2020 07/28/2021 Social History Tobacco Use Types Packs/Day Years Used Date Smoking Tobacco: Former Cigarettes 0.1 3 1 993 - 1995 Smokeless Tobacco: Never Tobacco Cessation:Counseling Given: Not Answered Alcohol Use Standard Drinks/Week Comments Never 0 (1 standard drink = 0.6 oz pur e alcohol) AUDIT-C Answer Date Recorded Q1: How often do you have a drink containing alcohol? Never 11/17/2023 Q2: How many drinks containi ng alcohol do you have on a typical day when you are drinking? Patient does not drink Q3: How often do you have si x or more drinks on one occasion? Never 11/17/2023 PHQ-2 Answer Date Recorded PHQ-2 Total Score (If total score is 3 or more points, staff should administer the PHQ-9) 0 06/25/2020 Personal Safety Answer Date Recorded Have you ever been in or are you currently in a harmful physical or emotional relationship or is someone making you feel afraid or unsafe? Denies 11/17/2023 Comments No Sex and Gender Information Value Date Recorded Sex Assigned at Not on file Legal Sex Female 12:48 PM CDT Gender Identity Female 10/13/2020 6:47 PM CDT Sexual Orientation Straight 10/13/2020 6: 47 PM CDT Last Filed Vital Signs Vital Sign Reading Time Taken Comments Blood Pressure 101/66 07/11/2024 10:44 AM CDT Pulse 79 07/11/2024 10:44 AM CDT Temperature 36.6 C (97.8 F) 07/11/2024 10:44 AM CDT Respiratory Rate 18 07/11/2024 10:44 AM CDT Oxygen Saturation 98% 07/11/2024 10:44 AM CDT Inhaled Oxygen Concentration - - Weight 82.6 kg (182 lb) 07/11/2024 10:44 AM CDT Height 177.8 cm (5' 10) 07/11/2024 10:44 AM CDT Body Mass Index 26.11 07/11/2024 10:44 AM CDT Plan of Treatment Upcoming Encounters Date Type Department Care Team (Late st Contact Info) Description 03/19/2025 11:00 AM PRODUCT ADVISOR Hospital Encounter [address] [address] Shane Langston, 4 [facility] [address] [place] [address] 03/19/2025 11:00 AM PRODUCT ADVISOR - 03/19/2025 11:30 AM PRODUCT ADVISOR Surgery [address] [address] Shane Langston DO 4 [facility] [place] [address] COLONOSCOPY Scheduled Procedures Name Priority Associated Diagnoses Date/Ti me COLONOSCOPY Screening for colon cancer 03/19/2025 11:00 AM PRODUCT ADVISOR Medical Devices Implanted Type Area Lotus Notes Administrator Device Identifier Shelf Expiration Date Model / Serial / Lot Virally Inc Implant Mammary Natrelle Te Smooth 310b-Gb-32-T With Fourte 765t-Js-67-T - [id number] - [id number] Implanted:Qty: 1 on 11/19/2022 by Finn Stevens MD at [facility] Breast [employer] [id number] 01/12/2027 133S-FX-1 1-T / [id number] / [employer] Natrelle 13cm Style 68mp Smooth Anterior Diaphragm Valve P4.5cm 68-390 - [id number] - [id number] Implanted:Qty: 1 on 11/17/2023 by Finn Stevens MD at [facility] Breast Left: Breast [employer] [id number] 02/05/2026 68-390 / [id number] / [employer] Natrelle 12.7cm Style 68 Textured Anterior Diaphragm Valve Smooth 68-360 - [id number] - [id number] Implanted:Qty: 1 on 11/17/2023 by Finn Stevens MD at [facility] Breast Right: Breast [employer] [id number] 03/25/2026 68-360 / [id number] / Gelesis Willacy 2.5mm Ring Pin Ultrasonic Doppler 20mhz Behavioral Health Specialist Anastomosis Latex Free 2753 - [id number] Implanted:Qty: 1 on 02/23/2022 by Finn Stevens MD at [facility] Clip Left: Breast Gelesis [id number] 08/18/2026 2753 / / [id number] [employer] [id number] Powerport Clearvue Airguard 8fr 1 Lumen Lightweight Intermediate Latex Free - [id number] Implanted:Qty: 1 on 08/12/2020 by AftTresa MD PhD at [facility] Right: Breast [employer] [id number] 10/07/2021 [id number] / / [id number] Gelesis Hemoclip Superfine Clip Internal Rnb0780-Zm - [id number] Implanted:Qty: 2 on 02/23/2022 by Finn Stevens MD at [facility] [employer] Allian [id number] 07/07/2026 [id number] F / / [id number] [employer] Allian Hemoclip Superfine Clip Internal Vea4986-Ht - [id number] Implanted:Qty: 2 on 02/23/2022 by Finn Stevens MD at [facility] [employer] Allian [id number] 02/06/2026 ILO3680-Z F / / [id number] [employer] Allian Willacy 2.5mm Ring Pin Ultrasonic Doppler 20mhz Behavioral Health Specialist Anastomosis Latex Free 2753 - [id number] Implanted:Qty: 1 on 02/23/2022 by Finn Stevens MD at [facility] Right: Breast [employer] Allian [id number] 04/22/2026 2753 / / [id number] [employer] Allian Willacy 2mm Ring Pin Ultrasonic Doppler 20mhz Behavioral Health Specialist Anastomosis Latex Free 2752 - [id number] Implanted:Qty: 1 on 02/23/2022 by Finn Stevens MD at [facility] Right: Breast [employer]ian [id number] 10/02/2026 2752 / / [id number] [employer] Allian Willacy Cartridge Micro Clip Internal Titanium Hemostatic [id number] - [id number] Implanted:Qty: 1 on 02/23/2022 by Finn Stevens MD at [facility] [employer] Allian [id number] 07/07/2026 [id number] / / [id number] [employer] Allian Willacy Cartridge Micro Clip Internal Titanium Hemostatic Fby2941 - [id number] Implanted:Qty: 2 on 02/23/2022 by Finn Stevens MD at [facility] [employer] Allian [id number] 02/06/2026 [id number] / / [id number] [employer] Allian Willacy Cartridge Micro Clip Internal Titanium Hemostatic [id number] - [id number] Implanted:Qty: 3 on 02/23/2022 by Finn Stevens MD at [facility] [employer] James [id number] 06/06/2026 [id number] / / [id number] Explanted Type Area Lotus Notes Administrator Device Identifier Shelf Expiration Date Model / Serial / Lot [employer] 945i-Qg-82-T Implant Mammary Natrelle Te Smooth 663o-Im-50-T With Fourte - [id number] - [id number] Implanted:Qty : 1 on 08/12/2020 by Finn Stevens MD at [facility] Explanted:Qty : 1 on 02/23/2022 by Finn Stevens MD at [facility] Breast Right: Breast [employer] 10/15/2023 133S-FX-1 2-T / [id number] / [employer] Implant Mammary Natrelle Te Smooth 721v-Mn-06-T With Fourte 854m-Xj-53-T - [id number] - [id number] Implanted:Qty : 1 on 11/19/2022 by Finn Stevens MD at [facility] Explanted:Qty : 1 on 11/17/2023 by Finn Stevens MD at [facility] Breast [employer] [id number] 07/03/2026 133S -FX-1 1-T / [id number] / [employer] 501x-Gj-86-T Implant Mammary Natrelle Te Smooth 626f-Iq-81-T With Fourte - [id number] - [id number] Implanted:Qty : 1 on 08/12/2020 by Finn Stevens MD at [facility] Explanted:Qty : 1 on 11/17/2023 at [facility] Breast Left: Breast [employer] 03/02/2024 133S-FX-1 2-T / [id number] / Procedures Procedure Name Priority Date/Time Associated Diagnosis Comments ESTRADIOL Routine 07/11/2024 10:26 AM CDT Malignant neoplasm of lower-outer quadrant of left breast of female, estrogen receptor positive (HCC) EGFR Routine 07/11/2024 10:26 AM CDT Malignant neoplasm of lower-outer quadrant of left breast of female, estrogen receptor positive (HCC) DIFFERENTIAL AUTO Routine 07/11/2024 10: 26 AM CDT Malignant neoplasm of lower-outer quadrant of left breast of female, estrogen receptor positive (HCC) CBC WITH AUTO DIFFERENTIAL Routine 07/11/2024 10:26 AM CDT Malignant neoplasm of lower-outer quadrant of left breast of female, estrogen receptor positive (HCC) COMPREHENSIVE METABOLIC PANEL Routine 07/11/2024 10:26 AM CDT Malignant neoplasm of lower-outer quadrant of left breast of female, estrogen receptor positive (HCC) COLONOSCOPY 08/23/2019 7:56 AM CDT from Last 3 Months or Most Recently Relevant to Health Maintenance Results * eGFR (07/11/2024 10:26 AM CDT) eGFR >90 >=60 mL/min/1. 73 m2 Comment: Interpretive Data Reference Interval Normal >/= 90 mL/min/1.73m2 Mildly decreased* 60 - 89 mL/min/1.73m2 Mildly to moderately decreased 45 - 59 mL/min/1.73m2 Moderately to severely decreased 30 - 44 mL/min/1.73m2 Severely decreased 15 - 29 mL/min/1.73m2 Kidney Failure < 15 mL/min/1.73m2 *Relative to young adult level Estimated glomerular filtration rate is determined by the 2020 CKD-EPI equation recommended by the National Kidney Foundation (A Unifying Approach to GFR Estimation: Recommendations of the NKF-ASK Task Force on Reassessing the Inclusion of Race in Diagnosing Kidney Disease, JASN 2020). The CKD-EPI equation should not be used for patients with unstable renal function and has not been validated in children and those over 70. Current interpretive data was last reviewed 2020. Blood 07/11/2024 10:2 6 AM CDT 07/11/2024 10:30 AM CDT us Ralf Medel MD LAB BLOOD ORDERAB LES Final Result [facility] Department [place] [address] * (ABNORMAL) Differential, auto (07/11/2024 10:26 AM CDT) Neutrophil abs 4.21 1.50 - 6.50 K/cumm Comment:Testing performed by : [facility], [address] [place] [address] Lymphocyte abs 1.78 0.80 - 3.30 K/cumm CERLENORA MOTLEY Comment:Testing performed by : [facility], [address] [place], [place] [phone] Monocyte abs 0.46 0.20 - 0.80 K/cumm CERLENORA MOTLEY Comment:Testing performed by : [facility], [address] [place] [address] Eosinophil abs 0.61(H) 0.00 - 0.50 K/cumm CRYSTAL MOTLEY Comment:Testing performed by : [facility], [address] [place], [place] [phone] Basophil abs 0.07 0.00 - 0.10 K/cumm CERLENORA MOTLEY Comment:Testing performed by : [facility], [address] [place] [address] Neutrophil pct 59.0 % CERNER BJ Comment: Interpretive Data Percent cell count reference ranges are not reported, since discordance with absolute values may lead to misinterpretation of CBC data. Current Interpretive Data was last revised on 2017. Testing performed by: [facility], [address] [place] [phone] Lymphocyte pct 25.0 % CERNER BJ Comment: Interpretive Data Percent cell count reference ranges are not reported, since discordance with absolute values may lead to misinterpretation of CBC data. Current Interpretive Data was last revised on 2017. Testing performed by: [facility], [address] [place] [phone] Monocyte pct 6.4 % CRYSTAL MOTLEY Comment: Interpretive Data Percent cell count reference ranges are not reported, since discordance with absolute values may lead to misinterpretation of CBC data. Current Interpretive Data was last revised on 2017. Testing performed by: [facility], [address] [place] [phone] Eosinophil pct 8.5 % CRYSTAL MOTLEY Comment: Interpretive Data Percent cell count reference ranges are not reported, since discordance with absolute values may lead to misinterpretation of CBC data. Current Interpretive Data was last revised on 2017. Testing performed by: [facility], [address] [place], [place] [phone] Basophil pct 1.0 % CRYSTAL MOTLEY Comment: Interpretive Data Percent cell count reference ranges are not reported, since discordance with absolute values may lead to misinterpretation of CBC data. Current Interpretive Data was last revised on 2017. Testing performed by: [facility], [address] [place] [address] Blood 07/11/2024 10:2 6 AM CDT 07/11/2024 10:29 AM CDT us Ralf Medel MD LAB BLOOD ORDERAB LES Final Result CRYSTAL MOTLEY [facility] Department [place] [address] * CBC with auto differential (07/11/2024 10:26 AM CDT) WBC 7.13 3.80 - 9.90 K/cumm Comment:Testing performed by : [facility], [address] [place] [phone] Hgb 12.6 11.9 - 15.5 g/dL CRYSTAL MOTLEY Comment:Testing performed by : [facility], [address] [place] [phone] Hct 38.1 35.6 - 45.5 % CERNER BJ Comment:Testing performed by : [facility], [address] [place] [address] Plt 238 150 - 400 K/cumm CERLENORA BJ Comment:Testing performed by : [facility], [address] [place] [address] MPV 8.9 6.8 - 10.4 fL CERLENORA BJ Comment:Testing performed by : [facility], [address] [place] [address] RBC 4.21 3.90 - 5.20 M/cumm CERLENORA BJ Comment:Testing performed by : [facility], [address] [place] [address] MCV 90.5 81.3 - 96.4 fL CERLENORA BJ Comment:Testing performed by : [facility], [address] [place] [address] MCH 29.9 27.1 - 33.3 pg CERLENORA BJ Comment:Testing performed by : [facility], [address] [place] [address] MCHC 33.0 32.3 - 35.7 g/dL CERNER BJ Comment:Testing performed by : [facility], [address] [place] [address] RDW CV 13.8 11.1 - 14.9 % CERLENORA BJ Comment:Testing performed by : [facility], [address] [place] [address] NRBC abs 0.00 0.00 - 0.01 K/cumm CERLENORA BJ Comment:Testing performed by : [facility], [address] [place] [address] Blood 07/11/2024 10:2 6 AM CDT 07/11/2024 10:29 AM CDT us Ralf Medel MD LAB BLOOD ORDERAB LES Final Result CRYSTAL MOTLEY [facility] Department [place] [address] * Estradiol (07/11/2024 10:26 AM CDT) Pathologist [facility] Estradiol 19.2 pg/mL Comment: Interpretive Data Males: 11 43 pg/mL Females: Premenopausal: 31 533 pg/mL Postmenopausal: < 50 pg/mL Patients treated with Fluvestrant (Faslodex) should be tested using an alternate assay such as LC-MS due to potential for cross-reactivity. Estradiol varies widely throughout the menstrual cycle. Current interpretive data was last revised 2023. Blood 07/11/2024 10:2 6 AM CDT 07/11/2024 11:57 AM CDT Ralf Medel MD LAB BLOOD ORDERAB LES Final Result [facility] [place] [address] * Comprehensive metabolic panel (07/11/2024 10:26 AM CDT) [facility] Sodium 139 135 - 145 mmol/L Potassium, pl 4.2 3.3 - 4.9 mmol/L [facility] Chloride 106 97 - 110 mmol/L [facility] CO2 25 22 - 32 mmol/L [facility] Anion gap 8 2 - 15 mmol/L [facility] BUN 17 6 - 25 mg/dL [facility] Creatinine 0.78 0.60 - 1.10 mg/dL [facility] Glucose 95 70 - 199 mg/dL [facility] Comment: Interpretive Data Fasting glucose >/= 126 mg/dl is diagnostic for diabetes. Fasting is defined as no caloric intake for at least 8 hours. Fasting glucose between 100 mg/dl to 125 mg/dl is diagnostic of prediabetes. In a patient with classic symptoms of hyperglycemia or hyperglycemic crisis, a random glucose >/= 200 mg/dl is diagnostic for diabetes. In the absence of unequivocal hyperglycemia, results should be confirmed by repeat testing. The classification and Diagnosis of Diabetes Diabetes Care 202; 46: S19-S40. Current interpretive data was last revised 2022. Calcium 8.9 8.5 - 10.3 mg/dL CERNER BJ Bilirubin, total 0.2 0.1 - 1.2 mg/dL CERNER BJ Protein, pl 6.6 6.5 - 8.5 g/dL CERNER BJ Albumin 4.0 3.5 - 5.0 g/dL CERNER BJ Alk phos 127 40 - 130 Units/L CERNER BJ ALT 14 7 - 45 Units/L C[facility] AST 22 10 - 45 Units/L CERNER BJ Blood 07/11/2024 10:2 6 AM CDT 07/11/2024 10:30 AM CDT us Ralf Medel MD LAB BLOOD ORDERAB LES Final Result [facility] Department [place] [address] * COLONOSCOPY (08/23/2019 7:56 AM CDT) Anatomical Region Laterality Modality Other Narrative Procedure Note Guera Kwan MD - 08/23/2019 7:56 AM CDT [facility] Endoscopy Lab Patient Name: Eloise Hall Procedure Date: 08/23/2019 7:56 AM Date of : 1975 Admit Type: Outpatient Age: 44 Gender: Female Note Status: Finalized Attending MD: Guera Kwan M.D. Procedure Date: 08/23/2019 Procedure: Colonoscopy Indications: High risk colon cancer surveillance: Personalhistory of colonic polyps, Last colonoscopy: date unknown Providers: Guera Kwan M.D., James Mei M.D.(Anesthesia Staff), Eufemia Arita RN Referring MD: Juan Jose Pina Medicines: Monitored Anesthesia Care Complications: No immediate complications. Estimated Blood Loss: Estimated blood loss: none. Procedure: Pre-Anesthesia Assessment: - Prior to the procedure, a History and Physical was performed, and patient medications and allergieswere reviewed. The patient is competent. The risks and benefits of the procedure and the sedation optionsand risks were discussed with the patient. All questions were answered and informed consent was obtained. Patient identification and proposed procedure were verified by the physician and the nurse in the pre-procedure area in the procedure room. MentalStatus Examination: alert and oriented. Airway Examination: normal oropharyngeal airway and neck mobility. Respiratory Examination: clear to auscultation. CV Examination: normal. Prophylactic Antibiotics: The patient does not require prophylactic antibiotics. Prior Anticoagulants: The patient has taken noprevious anticoagulant or antiplatelet agents. ASA Grade Assessment: III - A patient with severe systemic disease. After reviewing the risks and benefits, the patient was deemed in satisfactory condition toundergo the procedure. The anesthesia plan was to usemonitored anesthesia care (MAC). Immediately prior to administration of medications, the patient was re-assessed for adequacy to receive sedatives. The heart rate, respiratory rate, oxygen saturations,blood pressure, adequacy of pulmonary ventilation, and response to care were monitored throughout the procedure. The physical status of the patient was re-assessed after the procedure. - The risks and benefits of the procedure and the sedation options and risks were discussed with the patient. All questions were answered and informed consent was obtained. After I obtained informed consent, the scope waspassed under direct vision. Throughout the procedure, the patient's blood pressure, pulse, and oxygensaturations were monitored continuously. The scope was passedunder direct vision. The Colonoscope was introducedthrough the anus and advanced to the the terminal ileum,with identification of the appendiceal orifice and ICvalve. The colonoscopy was performed without difficulty.The patient tolerated the procedure well. The quality of the bowel preparation was fair. The bowelpreparation used was SUPREP. Bowel prep was administered using a split dose. Findings: The perianal and digital rectal examinations were normal. The terminal ileum appeared normal. The entire examined colon appeared normal on direct and retroflexion views. Impression: - Preparation of the colon was fair. - The examined portion of the ileum was normal. - The entire examined colon is normal on direct and retroflexion views. - No specimens collected. Recommendation: - Discharge patient to home (ambulatory). - Resume previous diet. - Continue present medications. - Repeat colonoscopy in 2 years for surveillance. Procedure Code(s): --- Professional --- G0105, Colorectal cancer screening; colonoscopy on individual at high risk Diagnosis Code(s): --- Professional --- Z86.010, Personal history of colonic polyps CPT copyright 2017 [employer]. All rights reserved. The codes documented in this report are preliminary and upon pot firer reviewmay be revised to meet current compliance requirements. Electronically signed by Aniya Lynne MD Guera Kwan M.D. 08/23/2019 9:24:49 AM This report has been electronically signed by the physician. Number of Addenda: 0 Note Initiated On: 08/23/2019 7:56 AM Guera Kwan MD ENDOSCOPY PROCEDURES Edited R esult - Final from Last 3 Months or Most Recently Relevant to Health Maintenance Insurance [facility] Advance Directives For more information, please contact: [phone] * Full Code (Latest Code Status on File) Date Activated Date Inactivated Comments 02/23/2022 4:32 PM 02/26/2022 1:07 PM * Full Code Date Activated Date Inactivated Comments 08/12/2020 12:49 PM 08/13/2020 7:38 PM Care Teams Brands Editor Relationship Specialty Start Date End Date Berry Riley MD [address] [place] [address] PCP - General Internal Medicine 09/10/24 Ralf Medel MD [address] [place] [address] Consulting Physician Medical Oncology 07/15/20 Nicole Briseno MD PhD [address] [place] [address] Radiation Oncologist Radiation Oncology 01/23/21
--- OUTSIDE RECORDS SUMMARY | 2024-09-11 14:11 | XMS_ITS | Encounter Summary ---
Author Organization [facility] Healthcare Address [address] [place] [address] Care Team Providers Care Hadoop Developer Name Role Phone Ralf Medel MD Unavailable Nicole Briseno MD PhD Unavailable [phone] Berry Riley MD Primary Care Provider + Encounter Details Date Type Department Care Team (Late st Contact Info) Description 09/10/2024 Telephone [facility] Gastroenterology at [address] [place] [address] Britney Rainey LPN Social History Tobacco Use Types Packs/Day Years Used Date Smoking Tobacco: Former Cigarettes 0.1 3 1 993 - 1995 Smokeless Tobacco: Never Alcohol Use Standard Drinks/Week Comments Never 0 [...] Orientation Straight 10/13/2020 6: 47 PM CDT documented as of this encounter Miscellaneous Notes * Telephone Encounter - Britney Rainey LPN - 09/10/2024 1:06 PM CDT Pt is scheduled for a colonoscopy with on 03-19-25 at 11am Last colonoscopy: Family history colon cancer (if yes, relationship to pt): no Personal history colon polyps or colon cancer: no Pt on blood thinner (if yes, list medication and reason for taking): no Has pt had recent stent placement within the last year: no Pt have pacemaker/defibrillator: no Pt diabetic (if yes, insulin or oral meds): no Pt takes injections for weight loss: no Pt have kidney disease or on dialysis: no Pt on iron: no Hx of Constipation: no Mechanical Heart valve: no Instructed pt to call with any medical changes and/or medications/insurance. documented in this encounter Plan of Treatment Upcoming Encounters Date Type Department Care Team (Late st Contact Info) Description 03/19/2025 11:00 AM MATERIAL CONTROL SUPERVISOR Hospital Encounter [address] [address] Shane Langston DO [address] [facility] [address] [place] [address] 03/19/2025 11:00 AM MATERIAL CONTROL SUPERVISOR - 03/19/2025 11:30 AM MATERIAL CONTROL SUPERVISOR Surgery [address] [address] Shane Langston DO [address] [facility] [address] [place] [address] COLONOSCOPY Scheduled Procedures Name Priority Associated Diagnoses Date/Ti me COLONOSCOPY Screening for colon cancer 03/19/2025 11:00 AM MATERIAL CONTROL SUPERVISOR documented as of this encounter Visit Diagnoses Diagnosis Screening for colon cancer- Primary Special screening for malignant neoplasms, colon Screening for colon cancer- Primary Special screening for malignant neoplasms, colon Screening for colon cancer Special screening for malignant neoplasms, colon documented in this encounter Orders Case Request Count Last Ordered Date First Orde red Date CASE REQUEST GI 1 09/10/2024 documented in this encounter Care Teams Hadoop Developer Relationship Specialty Start Date End Date Berry Riley MD [address] [facility] [place] [address] PCP - General Internal Medicine 09/10/24 Ralf Medel MD [address] [place] [address] Consulting Physician Medical Oncology 07/15/20 Nicole Briseno MD PhD [address] [place] [address] Radiation Oncologist Radiation Oncology 01/23/21 documented as of this encounter
--- OUTSIDE RECORDS SUMMARY | 2024-09-11 14:11 | XMS_ITS | Encounter Summary ---
Author Organization [facility] Healthcare Address [address] [place] [address] Care Team Providers Care Filling Machine Set Up Mechanic Name Role Phone Ralf Medel MD Unavailable Nicole Briseno MD PhD Unavailable [phone] Berry Riley MD Primary Care Provider + Encounter Details Date Type Department Care Team (Late st Contact Info) Description 09/10/2024 Telephone [facility] [address] [facility] [address] [place] [address] Ledy Huang Social History Tobacco Use Types Packs/Day Years [...] encounter Miscellaneous Notes * Telephone Encounter - Reina Ledy - 09/10/2024 1:29 PM CDT Lvm on 09/10 asking pt to call the office to schedule appt with referral documented in this encounter Plan of Treatment Upcoming Encounters Date Type Department Care Team (Late st Contact Info) Description 03/19/2025 11:00 AM FINANCIAL SALES ASSISTANT Hospital Encounter [address] [address] Shane Langston [address] [place] [address] 03/19/2025 11:00 AM FINANCIAL SALES ASSISTANT - 03/19/2025 11:30 AM FINANCIAL SALES ASSISTANT Surgery [address] [address] Shane Langston [address] [facility] [address] [place] [address] COLONOSCOPY Scheduled Procedures Name Priority Associated Diagnoses Date/Ti me COLONOSCOPY Screening for colon cancer 03/19/2025 11:00 AM FINANCIAL SALES ASSISTANT documented as of this encounter Visit Diagnoses Not on filedocumented in this encounter Care Teams Filling Machine Set Up Mechanic Relationship Specialty Start Date End Date Berry Riley MD [address] [place] [address] PCP - General Internal Medicine 09/10/24 Ralf Medel MD [address] [place] [address] Consulting Physician Medical Oncology 07/15/20 Nicole Briseno MD PhD [address] [place] [address] Radiation Oncologist Radiation Oncology 01/23/21 documented as of this encounter
--- OUTSIDE RECORDS SUMMARY | 2024-09-11 14:12 | XMS_ITS | Clinical Summary ---
Author Organization [facility] Address [facility] [place] [address] Care Team Providers Care Solar Installation Helper Name Role Phone Ralf Medel MD Unavailable Nicole Briseno MD PhD Unavailable [phone] Berry Riley MD Primary Care Provider + Allergies Active Allergy Reactions Criticality Noted Date [...] by mouth once daily 30 tablet 11 Active Additional Information Patient taking differently: No details specified, Informant: Self, Reported on 07/11/2024 oxyCODONE (ROXICODONE) 5 mg immediate release tabletIndicatio ns:Pain Take 1 tablet (5 mg total) by mouth every 6 (six) hours as needed for pain 8 tablet 10/10/202 4 Active lisinopriL (PRINIVIL,ZESTR IL) 20 mg [...] (12/09/2021): Added automatically from request for surgery [id number] watermelon inspector (current) use of s elective estrogen receptor modulators (serms) 06/23/2021 Pain in left foot 06/11/2021 Neuropathy 06/11/2021 Infected breast tissue fmd teacher 05/04/2021 Overview (05/04/2021): Added automatically from request for surgery [id number] Encounter for follow-up exam ination after completed treatment for malignant neoplasm 03/13/2021 Personal history of irradiation 03/13/2021 Anemia 12/12/2020 Encounter for person encountering health service s 09/12/2020 Personal history of malignant neoplasm of breast 08/27/2020 Absence of breast, acquired, bilateral 1 Malignant neoplasm of lower- outer quadrant of left breast of female, estrogen receptor positive 05/03/2020 Cancer Staging:Pathologic:Stage IA(pT1c, pN1a, cM0, G2, ER+, CA+, HER2+) - Signed by Nicole Briseno MD [...] time. Assessment & Plan (12/26/2019 12:10 PM POULTRY PROCESS WORKER): -doing well on once a day PPI [...] a calorie intake despite working hard. Will senior caregiver ensure/diet supplement a twice a day for [...] (08/16/2019): Added automatically from request for surgery [id number] History of colon polyps 08/15/2019 Assessment & [...] neoplasm of left female breast 04/01/2020 07/28/2021 Encounters Date Type Department Care Team Description 09/10/2024 Telephone [facility] [address] [facility] [address] [place] [phone] AmaliaWilian méndeza 09/10/2024 Telephone [facility] [place] [address] [place] [address] Britney Rainey LPN 08/07/2024 Telephone [facility] [address] [place] [phone] Marcela Hines, c 40a crew chief refill 08/07/2024 Orders Only [facility] [address] [place] [phone] Marcela Hines, RN 07/11/2024 11:00 AM CDT Office Visit [facility] [address] [place] [address] Floor 8 [place] [phone] Ralf Medel MD Malignant neoplasm of lower-outer quadrant of left breast of female, estrogen receptor positive (HCC) (Primary Dx) 07/11/2024 10:30 AM CDT Lab [facility] - Lab Collection [facility] Floor 5 [place] [address] Malignant neoplasm of lower-outer quadrant of left breast of female, estrogen receptor positive (HCC) 07/11/2024 10:00 AM CDT Clinical Support [facility] Lab [address] [place] [address] Floor 5 [place] [address] Malignant neoplasm of lower-outer quadrant of left breast of female, estrogen receptor positive (HCC) from Last 3 Months Surgical History Surgery Date Site/Laterality Comments COLONOSCOPY 02/07/2019 - 02/07/2020 last one 08/2019 INDUCED APPENDECTOMY 02/07/1983 - 02/07/1984 4th grade BREAST BIOPSY 05/09/2020 Right ESOPHAGOGASTRODUODENOSCOPY 02/07/2019 - 02/07/2020 last one 08/2019 MASTECTOMY 08/12/2020 Bilateral tissue fmd teacher placement, port placed BREAST EXCISIONAL BIOPSY 05/08/2020 - 06/06/2020 Left TISSUE SAP PI DEVELOPER REMOVAL 05/08/2021 - 06/06/2021 Left FREE FLAP GRAFT 02/07/2022 - 03/09/2022 Bilateral BELKIS and removal of R tissue fmd teacher BREAST RECONSTRUCTION 11/19/2022 Bilateral Medical History Medical History Date Comments Personal history of other me ntal and behavioral disorders History of anxiety - (Added by TW Conv) Personal history of other di seases of the digestive system History of gastroesophageal reflux (GERD) - (Added by TW Conv) Migraine GERD (gastroesophageal reflu x disease) Superior mesenteric artery syndrome per pt PONV (postoperative nausea a nd vomiting) with colonoscopy d/t drinkin g juice immediately when emerging- has had subsequent procedures without PONV. Hyperlipidemia 03/21/2019 Breast cancer (HCC) RLS (restless legs syndrome) suhail mo induced Port-A-Cath in place right Cancer (HCC) Last Chemo and r adiation 2021 Family History Medical History Relation Name Comments Melanoma Cousin Family history of malignant melanoma - (Added by TW Conv) No Known Problems Father No Known Problems Mother Cancer Other 1 Family history of malignant neoplasm - (Added by TW Conv) Diabetes Other 2 Family history of diabetes mellitus - (Added by TW Conv) Anesthesia problems Neg Hx Relation Name Status Comments Cousin Father Mother Other 1 Other 2 Social History Tobacco Use Types Packs/Day Years [...] Orientation Straight 10/13/2020 6: 47 PM CDT Obstetrics History Last Filed Vital Signs Vital Sign Reading [...] st Contact Info) Description 03/19/2025 11:00 AM POULTRY PROCESS WORKER Hospital Encounter [address] [address] Shane Langston DO [address] [facility] [address] [place] [address] 03/19/2025 11:00 AM POULTRY PROCESS WORKER - 03/19/2025 11:30 AM POULTRY PROCESS WORKER Surgery [address] [address] Shane Langston DO [address] [facility] [address] [place] [address] COLONOSCOPY Scheduled Procedures Name Priority Associated Diagnoses Date/Ti me COLONOSCOPY Screening for colon cancer 03/19/2025 11:00 AM POULTRY PROCESS WORKER Health Maintenance Due Date Last Done Comments Breast Cancer Screening-Mammogram 1973 Cervical Cancer Screening 1973 Hepatitis C Screening 1973 DTaP/Tdap/Td Vaccine (1 - Tdap) 1984 Hepatitis B Screening 1991 Regular Well Visit/Exam 18-64 1991 Pneumococcal vaccine <65 (1 of 2 - PCV) 1992 Zoster Vaccine (1 of 2) 1992 Depression Screening 06/25/2021 06/25/2020, 12/26/2019, 09/26/2019, Additional history exists Influenza Vaccine (#1) 2024 Colon Cancer Screening-Colonoscopy 08/22/20292019 Medical Devices Implanted Type Area Bridge Painter Helper Device Identifier Shelf Expiration Date Model / Serial / Lot [employer] Implant Mammary Natrelle Te Smooth 825i-Ud-35-T With Fourte 747w-Dy-55-T - [id number] - [id number] Implanted:Qty: 1 on 11/19/2022 by Finn Stevens MD at [facility] Breast [employer] [id number] 01/12/2027 133S-FX-1 1-T / [id number] / [employer] Natrelle 13cm Style 68mp Smooth Anterior Diaphragm Valve P4.5cm 68-390 - [id number] - [id number] Implanted:Qty: 1 on 11/17/2023 by Finn Stevens MD at [facility] Breast Left: Breast [employer] [id number] 02/05/2026 68-390 / [id number] / [employer] Natrelle 12.7cm Style 68 Textured Anterior Diaphragm Valve Smooth 68-360 - [id number] - [id number] Implanted:Qty: 1 on 11/17/2023 by Finn Stevens MD at [facility] Breast Right: Breast [employer] [id number] 03/25/2026 68-360 / [id number] / Work4s [employer] [place] 2.5mm Ring Pin Ultrasonic Doppler 20mhz Patrol Driver Anastomosis Latex Free 2753 - [id number] Implanted:Qty: 1 on 02/23/2022 by Finn Stevens MD at [facility] Clip Left: Breast Work4s Sharalike Allian [id number] 08/18/2026 2753 / / [id number] [employer] [id number] Power[employer] Clearvue Airguard 8fr 1 Lumen Lightweight Intermediate Latex Free - [id number] Implanted:Qty: 1 on 08/12/2020 by Aft, Tresa Borjas MD PhD at [facility] Right: Breast [employer] [id number] 10/07/2021 [id number] / / [id number] [employer] Allcy Hemoclip Superfine Clip Internal Nhm0139-Zq - [id number] Implanted:Qty: 2 on 02/23/2022 by Finn Stevens MD at [facility] [employer] Allian [id number] 07/07/2026 [id number] F / / [id number] [employer] Allcy Hemoclip Superfine Clip Internal Njd5025-Ib - [id number] Implanted:Qty: 2 on 02/23/2022 by Finn Stevens MD at [facility] [employer] Allian [id number] 02/06/2026 [id number] F / / [id number] [employer] Allian [place] 2.5mm Ring Pin Ultrasonic Doppler 20mhz Patrol Driver Anastomosis Latex Free 2753 - [id number] Implanted:Qty: 1 on 02/23/2022 by Finn Stevens MD at [facility] Right: Breast [employer] Allian [id number] 04/22/2026 2753 / / [id number] [employer] Allian [place] 2mm Ring Pin Ultrasonic Doppler 20mhz Patrol Driver Anastomosis Latex Free 2752 - [id number] Implanted:Qty: 1 on 02/23/2022 by Finn Stevens MD at [facility] Right: Breast [employer] Allcy [id number] 10/02/2026 2752 / / [id number] [employer] Allian [place] Cartridge Micro Clip Internal Titanium Hemostatic Uzl2358 - [id number] Implanted:Qty: 1 on 02/23/2022 by Finn Stevens MD at [facility] [employer] Allian [id number] 07/07/2026 [id number] / / [id number] [employer] Allian [place] Cartridge Micro Clip Internal Titanium Hemostatic Ulf1564 - [id number] Implanted:Qty: 2 on 02/23/2022 by Finn Stevens MD at [facility] [employer] Allian [id number] 02/06/2026 [id number] / / [id number] [employer] Sharalike James [place] Cartridge Micro Clip Internal Titanium Hemostatic Bja9916 - [id number] Implanted:Qty: 3 on 02/23/2022 by Finn Stevens MD at [facility] Work4s Sharalike James [id number] 06/06/2026 [id number] / / [id number] Explanted Type Area Bridge Painter Helper Device Identifier Shelf Expiration Date Model / Serial / Lot [employer] 647k-Mx-60-T Implant Mammary Natrelle Te Smooth 802y-Ve-62-T With Fourte - [id number] - [id number] Implanted:Qty : 1 on 08/12/2020 by Finn Stevens MD at [facility] Explanted:Qty : 1 on 02/23/2022 by Finn Stevens MD at [facility] Breast Right: Breast [employer] 10/15/2023 133S-FX-1 2-T / [id number] / [employer] Implant Mammary Natrelle Te Smooth 677x-Cs-84-T With Fourte 864h-Fs-59-T - [id number] - [id number] Implanted:Qty : 1 on 11/19/2022 by Finn Stevens MD at [facility] Explanted:Qty : 1 on 11/17/2023 by Finn Stevens MD at [facility] Breast [employer] [id number] 07/03/2026 133S -FX-1 1-T / [id number] / [employer] 425t-Sl-61-T Implant Mammary Natrelle Te Smooth 089p-Vn-57-T With Fourte - [id number] - [id number] Implanted:Qty : 1 on 08/12/2020 by Finn Stevens MD at [facility] Explanted:Qty : 1 on 11/17/2023 at [facility] Breast Left: Breast [employer] 03/02/2024 133S-FX-1 2-T / [id number] / Procedures Procedure Name Priority Date/Time Associated [...] 6 AM CDT 07/11/2024 10:30 AM CDT Ralf Medel MD LAB BLOOD ORDERAB LES Final Result [facility] Department [place] [address] * (ABNORMAL) Differential, auto (07/11/2024 10:26 AM CDT) Neutrophil abs 4.21 1.50 - 6.50 K/cumm Comment:Testing performed by : [facility], [address] [place] [phone] Lymphocyte abs 1.78 0.80 - 3.30 K/cumm CRYSTAL MOTLEY Comment:Testing performed by : [facility], [address] [place] [phone] Monocyte abs 0.46 0.20 - 0.80 K/cumm CERLENORA BJ Comment:Testing performed by : [facility], [address] [place] [phone] Eosinophil abs 0.61(H) 0.00 - 0.50 K/cumm CERLENORA BJ Comment:Testing performed by : [facility], [address] [place] [phone] Basophil abs 0.07 0.00 - 0.10 K/cumm CERLENORA BJ Comment:Testing performed by : [facility], [address] [place] [phone] Neutrophil pct 59.0 % CERNER BJ Comment: Interpretive Data Percent cell count reference ranges are not reported, since discordance with absolute values may lead to misinterpretation of CBC data. Current Interpretive Data was last revised on 2017. Testing performed by: [facility], [address] [place] [phone] Lymphocyte pct 25.0 % CERNER BJ Comment: Interpretive Data Percent cell count reference ranges are not reported, since discordance with absolute values may lead to misinterpretation of CBC data. Current Interpretive Data was last revised on 2017. Testing performed by: [facility], [address] [place] [phone] Monocyte pct 6.4 % CRYSTAL MOTLEY Comment: Interpretive Data Percent cell count reference ranges are not reported, since discordance with absolute values may lead to misinterpretation of CBC data. Current Interpretive Data was last revised on 2017. Testing performed by: [facility], [address] [place] [phone] Eosinophil pct 8.5 % CRYSTAL MOTLEY Comment: Interpretive Data Percent cell count reference ranges are not reported, since discordance with absolute values may lead to misinterpretation of CBC data. Current Interpretive Data was last revised on 2017. Testing performed by: [facility], [address] [place] [phone] Basophil pct 1.0 % CRYSTAL MOTLEY Comment: Interpretive Data Percent cell count reference ranges are not reported, since discordance with absolute values may lead to misinterpretation of CBC data. Current Interpretive Data was last revised on 2017. Testing performed by: [facility], [address] [place] [phone] Blood 07/11/2024 10:2 6 AM CDT 07/11/2024 10:29 AM CDT Ralf Medel MD LAB BLOOD ORDERAB LES Final Result CRYSTAL MOTLEY [facility] Department [place] [address] * CBC with auto differential (07/11/2024 10:26 AM CDT) WBC 7.13 3.80 - 9.90 K/cumm Comment:Testing performed by : [facility], [address] [place] [phone] Hgb 12.6 11.9 - 15.5 g/dL CRYSTAL GARCIA Comment:Testing performed by : [facility], [address] [place] [address] Hct 38.1 35.6 - 45.5 % CERNER BJ Comment:Testing performed by : [facility], [address] [place], [place] [phone] Plt 238 150 - 400 K/cumm CERNER BJ Comment:Testing performed by : [facility], [address] [place], [place] [phone] MPV 8.9 6.8 - 10.4 fL CERNER BJ Comment:Testing performed by : [facility], [address] [place], [place] [phone] RBC 4.21 3.90 - 5.20 M/cumm CERLENORA BJ Comment:Testing performed by : [facility], [address] [place], [place] [phone] MCV 90.5 81.3 - 96.4 fL CERLENORA [facility] Comment:Testing performed by : [facility], [address] [place] [address] MCH 29.9 27.1 - 33.3 pg CERNER [facility] Comment:Testing performed by : [facility], [address] [place] [address] MCHC 33.0 32.3 - 35.7 g/dL CERNER [facility] Comment:Testing performed by : [facility], [address] [place] [address] RDW CV 13.8 11.1 - 14.9 % CERNER [facility] Comment:Testing performed by : [facility], [address] [place] [address] NRBC abs 0.00 0.00 - 0.01 K/cumm CERLENORA [facility] Comment:Testing performed by : [facility], [address] [place] [address] Blood 07/11/2024 10:2 6 AM CDT 07/11/2024 10:29 AM CDT Ralf Medel MD LAB BLOOD ORDERAB LES Final Result Performing Organization Address [facility] de Phone Number [facility] Department [place] [address] * Estradiol (07/11/2024 10:26 AM CDT) [facility] Estradiol 19.2 pg/mL Comment: Interpretive Data Males: [...] MD LAB BLOOD ORDERAB LES Final Result Performing Organization Address [facility] de Phone Number [facility] Department [place] [address] * Comprehensive metabolic panel (07/11/2024 10:26 AM CDT) [facility] Sodium 139 135 - 145 mmol/L Potassium, pl 4.2 3.3 - 4.9 mmol/L [facility] Chloride 106 97 - 110 mmol/L [facility] CO2 25 22 - 32 mmol/L [facility] Anion gap 8 2 - 15 mmol/L [facility] BUN 17 6 - 25 mg/dL [facility] Creatinine 0.78 0.60 - 1.10 mg/dL [facility] Glucose 95 70 - 199 mg/dL [facility] Comment: Interpretive Data Fasting glucose >/= 126 [...] classification and Diagnosis of Diabetes Diabetes Care 2021; 46: S19-S40. Current interpretive data was last revised 2022. Calcium 8.9 8.5 - 10.3 mg/dL CERNER [facility] Bilirubin, total 0.2 0.1 - 1.2 mg/dL CERNER [facility] Protein, pl 6.6 6.5 - 8.5 g/dL CERNER [facility] Albumin 4.0 3.5 - 5.0 g/dL CERNER [facility] Alk phos 127 40 - 130 Units/L CERNER BJ ALT 14 7 - 45 Units/L CERNER BJ AST 22 10 - 45 Units/L CERNER [facility] Blood 07/11/2024 10:2 6 AM CDT 07/11/2024 10:30 AM CDT us Ralf Medel MD LAB BLOOD ORDERAB LES Final Result [facility] Department [place] [address] * COLONOSCOPY (08/23/2019 7:56 AM CDT) Anatomical Region Laterality Modality Other Narrative Procedure Note Guera Kwan MD - 08/23/2019 7:56 AM CDT [facility] Endoscopy [facility] Patient Name: Eloise Hall [...] history of colonic polyps CPT copyright 2017 [employer]. All rights reserved. The codes documented in this report are preliminary and upon leadership program intern reviewmay be revised to meet current compliance requirements. Electronically signed by Aniya Lynne MD Guera Kwan M.D. 08/23/2019 9:24:49 AM This report has been electronically signed by the physician. Number of Addenda: 0 Note Initiated On: 08/23/2019 7:56 AM Guera Kwan MD ENDOSCOPY PROCEDURES Edited R esult - Final from Last 3 Months or Most Recently Relevant to Health Maintenance Insurance [facility] Advance Directives For more information, please contact: [phone] * Full Code (Latest Code Status on File) Date Activated Date Inactivated Comments 02/23/2022 4:32 PM 02/26/2022 1:07 PM * Full Code Date Activated Date Inactivated Comments 08/12/2020 12:49 PM 08/13/2020 7:38 PM Care Teams Solar Installation Helper Relationship Specialty Start Date End Date Berry Riley MD [address] [place] [address] PCP - General Internal Medicine 09/10/24 Ralf Medel MD [address] [place] [address] Consulting Physician Medical Oncology 07/15/20 Nicole Briseno MD PhD [address] [place] [address] Radiation Oncologist Radiation Oncology 01/23/21
--- OUTSIDE RECORDS SUMMARY | 2024-09-11 14:12 | XMS_ITS | Encounter Summary ---
Author Organization [facility] Address [address] [place] [address] Phone Care Team Providers Care Daycare Director Name Role Phone Lizbeth Macdonald Primary Care Provider [phone] Ralf Medel MD Unavailable Nicole Briseno MD PhD Unavailable [phone] Berry Riley MD Primary Care Provider + Encounter Details Date Type Department Care Team (Late st Contact Info) Description 04/30/2020 Telephone [facility] Surgery [address] [facility] 5[address] [place] [address] [place] [address] Tena Hirsch Social History Tobacco Use Types Packs/Day Years Used Date Smoking Tobacco: Former Smokeless Tobacco: Never Alcohol Use Standard Drinks/Week Comments Never 0 (1 standard drink = 0.6 oz pur e alcohol) AUDIT-C Answer Date Recorded Q1: How often do you have a drink containing alc ohol? Never 12/26/2019 Average Number of Drinks Not on file 020 Frequency of Binge Drinking Not on file 12/08 PHQ-2 Answer Date Recorded PHQ-2 Total Score (If total score is 3 or more points, staff should administer the PHQ-9) 0 12/26/2019 Comments Unknown Sex and Gender Information Value Date Recorded Sex Assigned at Not on file Legal Sex Female 12:48 PM CDT Gender Identity Female 10/13/2020 6:47 PM CDT Sexual Orientation Straight 10/13/2020 6: 47 PM CDT documented as of this encounter Plan of Treatment Upcoming Encounters Date Type Department Care Team (Late st Contact Info) Description 03/19/2025 11:00 AM COMBINE DRIVER Hospital Encounter [address] [address] Shane Langston, DO [address] [facility] [place] [address] 03/19/2025 11:00 AM COMBINE DRIVER - 03/19/2025 11:30 AM COMBINE DRIVER Surgery [address] [address] Shane Langston, DO [address] [facility] [place] [address] COLONOSCOPY Scheduled Procedures Name Priority Associated Diagnoses Date/Ti me COLONOSCOPY Screening for colon cancer 03/19/2025 11:00 AM COMBINE DRIVER documented as of this encounter Visit Diagnoses Not on filedocumented in this encounter Care Teams Daycare Director Relationship Specialty Start Date End Date Lizbeth Macdonald PA [address] [place] [address] PCP - General Physician Cuffer 07/11/19 09/09/24 Berry Riley MD [facility] [place] [address] PCP - General Internal Medicine 09/10/24 Ralf Medel MD [address] [place] [address] Consulting Physician Medical Oncology 07/15/20 Nicole Briseno MD PhD [address] [place] [address] Radiation Oncologist Radiation Oncology 01/23/21 documented as of this encounter
--- OUTSIDE RECORDS SUMMARY | 2024-09-11 14:12 | XMS_ITS | Encounter Summary ---
Author Organization [facility] Address [address] [place] [place] [address] Phone Care Team Providers Care E Business Manager Name Role Phone Lizbeth Macdonald Primary Care Provider [phone] Ralf Medel MD Unavailable Nicole Briseno MD PhD Unavailable [phone] Berry Riley MD Primary Care Provider + Encounter Details Date Type Department Care Team (Latest Contact Info) Description 07/25/2020 Orders Only [facility] Scanning, Provider Social History Tobacco Use Types Packs/Day Years Used Date Smoking Tobacco: Former Cigarettes Q uit: 1995 Smokeless Tobacco: Never Alcohol Use Standard Drinks/Week Comments Never 0 (1 standard drink = 0.6 oz pur e alcohol) AUDIT-C Answer Date Recorded Q1: How often do you have a drink containing alc ohol? Never 06/25/2020 Average Number of Drinks Not on file 021 Q3: How often do you have si x or more drinks on one occasion? Never 06/25/2020 PHQ-2 Answer Date Recorded PHQ-2 Total Score (If total score is 3 or more points, staff should administer the PHQ-9) 0 06/25/2020 Comments No Sex and Gender Information Value Date Recorded Sex Assigned at Not on file Legal Sex Female 12:48 PM CDT Gender Identity Female 10/13/2020 6:47 PM CDT Sexual Orientation Straight 10/13/2020 6: 47 PM CDT documented as of this encounter Plan of Treatment Upcoming Encounters Date Type Department Care Team (Late st Contact Info) Description 03/19/2025 11:00 AM POCKET MACHINE OPERATOR Hospital Encounter [address] [address] Shane Langston DO [address] [facility] [place] [address] 03/19/2025 11:00 AM POCKET MACHINE OPERATOR - 03/19/2025 11:30 AM POCKET MACHINE OPERATOR Surgery [address] [address] Shane Langston, [address] [facility] [place] [address] COLONOSCOPY Scheduled Procedures Name Priority Associated Diagnoses Date/Ti me COLONOSCOPY Screening for colon cancer 03/19/2025 11:00 AM POCKET MACHINE OPERATOR documented as of this encounter Procedures Procedure Name Priority Date/Time Associated Diagnosis Comments SCAN - PATHOLOGY 07/25/2020 documented in this encounter Results * SCAN - PATHOLOGY (07/25/2020) us Provider Scanning Final Result documented in this encounter Visit Diagnoses Not on filedocumented in this encounter Care Teams E Business Manager Relationship Specialty Start Date End Date Lizbeth Macdonald PA [address] [place] [address] PCP - General Physician Admissions Recruiter 07/11/19 09/09/24 Berry Riley MD [address] [facility] [place] [address] PCP - General Internal Medicine 09/10/24 Ralf Medel MD [address] [place] [address] Consulting Physician Medical Oncology 07/15/20 Nicole Briseno MD PhD [address] [place] [address] Radiation Oncologist Radiation Oncology 01/23/21 documented as of this encounter
[2024-09-11] MEDS: PROMETHAZINE HCL 25 MG/ML AMPUL 12.5 MG IV PUSH (14:51)
[2024-09-11] MEDS: SODIUM CHLORIDE 0.9% IV 1,000 ML 999 ML IV CONT ×2 (14:51→18:15)
[2024-09-11 14:56] LABS: Hematocrit 40.6 % (37.0-47.0); Hemoglobin 13.7 g/dL (12.0-15.0); Immature Granulocyte Percent A 0.6 % (0-0.5); Lymphocytes Absolute Auto 1.32 K/mm3 (0.9-3.2); Mean Corpuscular HGB Conc 33.7 g/dl (32-36); Mean Corpuscular Hemoglobin 29.7 pg (26-34); Mean Corpuscular Volume 88.1 fl (80-100); Nucleated Red Blood Cells Absolute Auto 0.000 K/mm3 (0.0-0.012); Nucleated Red Blood Cells Perc 0.0 % (0.0-0.2); Platelet Count Result 304 k/mm3 (150-375); Red Blood Count 4.61 M/mm3 (4.2-5.4); White Blood Count 7.2 K/mm3 (4.5-10.0)
[2024-09-11 14:58] VITALS: PULSE 77; RESP 14; O2SAT 100
[2024-09-11 15:00] VITALS: BP 149/127; PULSE 74; RESP 19; O2SAT 100
[2024-09-11 15:05] LABS: BEDSIDEPREGUCG Negative (Negative)
[2024-09-11 15:05] LABS: Add Urine Microscopic? YES; Appearance Urine Clear (Clear); Glucose Urine UA Negative (Negative); Leukocyte Esterase Ur Trace LEU/UL (Negative); Nitrate Urine Negative (Negative); Non Pathogenic Casts 0-2; Specific Grav Ur 1.023 (1.001-1.035)
[2024-09-11 15:10] LABS: INR 1.1; Prothrombin Time 13.7 Seconds (11.1-14.7)
[2024-09-11 15:26] LABS: Albumin Level 4.7 g/dL (3.5-5.1); Carbon Dioxide 14 mmol/L (22-30); Total Protein 8.0 g/dL (6.3-8.2)
[2024-09-11 15:38] LABS: Alanine Aminotransferase 25 U/L (6-35); Alkaline Phosphatase 116 U/L (38-126); Anion Gap 16 mmol/L (4-12); Aspartate Amino Transferase 37 U/L (14-36); Bilirubin,Total 1.0 mg/dL (0.2-1.3); Blood Urea Nitrogen 12 mg/dL (7-17); Calcium 10.4 mg/dL (8.4-10.2); Chloride 110 mmol/L (98-107); Estimated CRCL calculation 72 ml/min; Estimated Glomerular Filt Rate > 60; Glucose 145 mg/dL (65-110); Potassium 3.2 mmol/L (3.4-5.0); Sodium 140 mmol/L (137-145)
--- NOTE | 2024-09-11 15:52 | PC.NURSE ---
pt refusing to go to [facility] until she gets more medication, aware
[2024-09-11] MEDS: HYDROmorphone HCL INJ (*CRX) 2 MG/ML VIAL 1 MG IV PUSH (16:12)
[2024-09-11 16:40] VITALS: BP 144/95; PULSE 93; RESP 20; O2SAT 100
--- NOTE | 2024-09-11 18:00 | ED_ITS ---
HPI - Abdominal Pain General Chief Complaint: Abdominal Pain Stated Complaint: abd pain Time Seen by Provider: 09/11/24 14:08 Source: patient Mode of arrival: ambulatory Limitations: no limitations History of Present Illness HPI narrative: 49-year-old with a history of SMA syndrome presents to the ER with a complains of severe abdominal pain associated with nausea and vomiting since yesterday. Patient states that she went to a friend's house had dinner and soon after started having the symptoms. She states that she took hot baths to relieve her nausea and vomiting which did not help she continued to vomit all through the night and she stated that she could not take this pain and nausea anymore. She denies any fever or chills. She states IV Phenergan and fluids usually help with her symptoms. Related Data Home Medications ?Medication ?Instructions ?Recorded ?Confirmed ?Last Taken ?Type atorvastatin 10 mg tablet (Lipitor) 10 mg PO 07/24/19 Unknown History promethazine 25 mg tablet 07/24/19 Unknown History ropinirole 0.5 mg tablet mg 07/24/19 Unknown History ropinirole 2 mg tablet mg 07/24/19 Unknown History Allergies Allergy/AdvReac Type Severity Reaction Status Date / Time acetaminophen Allergy Mild Itching Verified 08/01/19 13:35 ciprofloxacin Allergy Mild Rash Verified 08/01/19 13:35 hydrocodone Allergy Mild Itching Verified 08/01/19 13:35 sulfamethoxazole (From Allergy Rash Verified 08/01/19 13:35 Bactrim) trimethoprim (From Bactrim) Allergy Rash Verified 08/01/19 13:35 Review of Systems 2 Review of Systems: All systems reviewed & are unremarkable except as noted in HPI and below Constitutional: Constitutional: Reports no additional constitutional complaints Eyes: Eyes: Reports no additional eye complaints ENT: Reports system reviewed and no additional complaints, except as documented Cardiovascular: Cardiovascular: Reports no additional cardiovascular complaints Respiratory: Respiratory: Reports no additional respiratory complaints Gastrointestinal: Gastrointestinal: Reports as per HPI Musculoskeletal: Musculoskeletal: Reports no additional musculoskeletal complaints Neurologic: Reports system reviewed and no additional complaints, except as documented Psychiatric: Psychiatric: Reports no additional psychiatric complaints [facility] Past Medical History Medical History (Updated 09/11/24 @ 18:12 by Shaan Coronel MD) SMAS (superior mesenteric artery syndrome) Surgical History Surgical History History of colonoscopy H/O endoscopy Social History Social History Substance use type: marijuana Gender identity (if verbalized by the patient): Female Exam 2 Narrative: GENERAL: Well-appearing, well-nourished, hyperventilating and dry heaving HEAD: Normocephalic, atraumatic. EYES: PERRLA and EOMI. ENT: Nares clear, no rhinorrhea or epistaxis. Mucous membranes moist. NECK: Supple. CHEST: Clear to auscultation. No respiratory distress. HEART: Regular rate and rhythm. No murmur heard. Normal peripheral pulses. ABDOMEN: Soft, nontender, nondistended, normal active bowel sounds. EXTREMITIES: Normal range of motion. No edema. SKIN: Warm, dry, no rash. NEURO: No focal deficits. Alert and oriented x3. PSYCH: Normal mood and affect. Course Course Emergency Course: Patient was given IV fluids along with Phenergan and Dilaudid pain control. Her nausea and pain has much improved. I did inform her about the lab work, CT findings. Patient states that she has a GI specialist at [facility] and she would like to follow with her own GI . Vital Signs Vital signs: Vital Signs Temperature 36.4 C 09/11/24 14:09 Pulse Rate 97 09/11/24 14:09 Respiratory Rate 18 09/11/24 14:09 Blood Pressure 178/86 H 09/11/24 14:09 Pulse Oximetry 98 09/11/24 14:09 Temperature 36.4 C 09/11/24 14:09 Pulse Rate 77 09/11/24 14:58 Respiratory Rate 14 09/11/24 14:58 Blood Pressure 178/86 H 09/11/24 14:09 Pulse Oximetry 100 09/11/24 14:58 Oxygen Delivery Room Air 09/11/24 14:58 MDM - Abdominal Pain Differential Diagnosis Differential diagnosis: Likely abdominal pain, diverticulitis, gastroenteritis and small bowel obstruction Medical Records Attestation: I reviewed the patient's medical records. Lab Data Attestation: I reviewed the patient's lab results. 09/11/24 14:41 09/11/24 14:41 Labs: Lab Results 08/05/25 08/05/25 08/05/25 Range/Units 14:41 15:00 17:10 WBC 7.2 (4.5-10.0) K/mm3 RBC 4.61 (4.2-5.4) M/mm3 Hgb 13.7 (12.0-15.0) g/dL Hct 40.6 (37.0-47.0) % MCV 88.1 (80-100) fl MCH 29.7 (26-34) pg MCHC 33.7 (32-36) g/dl RDW 14.0 (11.5-14.5) % Plt Count 304 (150-375) k/mm3 MPV 10.5 H (7.4-10.4) fl Immature Gran % (Auto) 0.6 H (0-0.5) % Neut % (Auto) 75.1 H (45.5-73.1) % Lymph % (Auto) 18.4 (18.3-44.2) % [place] % (Auto) 4.9 (2.6-8.5) % Eos % (Auto) 0.3 (0-4.4) % Baso % (Auto) 0.7 (0.2-1.2) % Lymph # (Auto) 1.32 (0.9-3.2) K/mm3 [place] # (Auto) 0.4 (0.1-0.6) K/mm3 Eos # (Auto) 0.0 (0-0.3) K/mm3 Baso # (Auto) 0.1 (0.0-0.1) K/mm3 Abs Immat Gran (auto) 0.04 H (0.00-0.031) K/mm3 Absolute Neuts (auto) 5.4 (1.3-6.7) K/mm3 Absolute Nucleated RBC 0.000 (0.0-0.012) K/mm3 Nucleated RBC % 0.0 (0.0-0.2) % PT 13.7 (11.1-14.7) Seconds INR 1.1 Sodium 140 (137-145) mmol/L Potassium 3.2 L (3.4-5.0) mmol/L Chloride 110 H (98-107) mmol/L Carbon Dioxide 14 L (22-30) mmol/L Anion Gap 16 H (4-12) mmol/L BUN 12 (7-17) mg/dL Creatinine 0.87 (0.7-1.0) mg/dL Estim Creat Clear Calc 72 ml/min Estimated GFR > 60 (59 - ) Glucose 145 H (65-110) mg/dL Lactic Acid 2.9 H 1.2 (0.7-2.0) mmol/L Calcium 10.4 H (8.4-10.2) mg/dL Total Bilirubin 1.0 (0.2-1.3) mg/dL AST 37 H (14-36) U/L ALT 25 (6-35) U/L Alkaline Phosphatase 116 (38-126) U/L Total Protein 8.0 (6.3-8.2) g/dL Albumin 4.7 (3.5-5.1) g/dL Urine Color Yellow (Yellow) Urine Appearance Clear (Clear) Urine pH 8.5 (5.0-9.0) Ur Specific [place] 1.023 (1.001-1.035) Urine Protein 1+ H (Negative) mg/dL Urine Glucose (UA) Negative (Negative) mg/dL Urine Ketones 4+ H (Negative) mg/dL Ur Blood (Man) Negative (Negative) Urine Nitrate Negative (Negative) Urine Bilirubin Negative (Negative) Urine Urobilinogen 1.0 (<2.0) mg/dL Leukocyte Esterase Rfl Trace H (Negative) TITO/UL Urine RBC 0-2 (0-2) /hpf Urine WBC 0-5 (0-3) /hpf Ur Squamous Epith Cells Moderate (Few) /hpf Urine Bacteria Rare /hpf Urine Casts 0-2 POC Urine HCG, Qual Negative (Negative) ABG Data Attestation: I personally reviewed and interpreted this ABG as follows: Imaging Data Radiologist's impression: ITS Impressions Abdomen/Pelvis CTA 09/11/24 16:46 IMPRESSION: Findings suggesting short segment colitis within the ascending and transverse colons for which clinical correlation is needed regarding lower abdominal pain. No cross-sectional imaging evidence to support the reported diagnosis of SMA syndrome, as detailed above. Findings which may represent median arcuate ligament syndrome, given the high takeoff of the celiac axis. Although, no discrete stenosis is appreciated within the celiac axis and no post stenotic dilatation is present. Elective surgical consultation/follow-up may be performed. Discharge Plan Discharge Clinical Impression: Abdominal pain Qualifiers: Abdominal location: generalized Qualified Code(s): R10.84 - Generalized abdominal pain Patient Disposition: Home Condition: Stable Instructions: Abdominal Pain (ED) Additional Instructions: Continue home medications, follow-up with your GI Patient Language: Slovak Prescriptions: No Action atorvastatin [Lipitor] 10 mg tablet 10 mg PO ropinirole 2 mg tablet ropinirole 0.5 mg tablet promethazine 25 mg tablet famotidine [Pepcid] 20 mg tablet 20 mg PO BID Qty: 7 0RF dicyclomine 20 mg tablet 20 mg PO QID Qty: 20 0RF Follow-up/Referrals: Renae,ELIZABETH Beyer [Primary Care Provider] - Time of Disposition: 18:12
[2024-09-11 18:51] VITALS: BP 147/93; PULSE 97; RESP 14; O2SAT 98
== END 2024-09-11 19:29 | disposition home or self-care (01) ==
PROVIDERS: Emergency Provider Family Medicine; PCP Physician Assistant
DX: R10.84 Generalized abdominal pain (principal); R93.3 Abnormal findings on diagnostic imaging of other parts of digestive tract; R93.1 Abnormal findings on diagnostic imaging of heart and coronary circulation
CPT/HCPCS: 36415; 74174; 80053; 81001; 81025; 83605; 85025; 85610; 96361; 96374; 96375; 99284; J1171; J2550; J7030; Q9967

== ENCOUNTER 2024-09-12 07:47 | Emergency (ER) | payer OTHER, SELFPAY ==
--- OUTSIDE RECORDS SUMMARY | 2024-09-12 07:49 | XMS_ITS | Continuity of Care Document ---
Author Organization [facility] Address [address] [place] [address] Phone Care Team Providers Care Utility Mechanic Name Role Phone Chan PRADHAN, FACC, Beronica Unavailable Unavailab le Procedures Procedure Date ELECTROCARDIOGRAM REPORT Advance Directives Directive Yes / No Effective Date File Name No Information Encounters Encounter Description Practice Location Reason(s) For Visit Diagnoses Date Provider Providers Copied on Encounter [facility], [address] [place] [address], [id number], tel:[phone] [facility] No Information Chan Loco. [address] [place] [address], [id number], . tel:[phone] Referring Provider: Beronica Giles, [address] [place] [address], [id number]. tel:[phone] Family History Family Member Type Diagnosis Age At Onset No Information Payers Payer name Insurance type Covered alliance party ID Franc amador(s) [employer] CI [id number] Social History Type Description Quantity Date Captured Comments Sex Female Smoking Status No Information Chief Complaint And Reason For Visit No Information Reason For Referral Reason For Referral No Information History Of Present Illness Encounter Date Complaint History Of Prese nt Illness No Information Functional Status Date Functional Assessmen t No Information Instructions Date Instruction Additional Infor mation No Information Assessments Type Assessment Date No Information Patient Care Teams Name Effective Dates (start - stop) Status Members No Information
[2024-09-12 07:53] VITALS: BP 185/98; PULSE 97; RESP 20; TEMP 36.6; O2SAT 99
--- OUTSIDE RECORDS SUMMARY | 2024-09-12 08:10 | XMS_ITS ---
Author Organization [facility] Address [address] [place] [address] Care Team Providers Care Steam Presser Name Role Phone Ralf Medel MD Unavailable Nicole Briseno MD PhD Unavailable [phone] Berry Riley MD Primary Care Provider + Active Problems Problem Noted Date Diagnosed Date Screening for colon cancer 09/10/2024 Absence of both breasts 07/26/2022 Absence of breast, bilateral 02/23/2022 Hx of breast reconstruction 12/09/2021 Overview (12/09/2021): Added automatically from request for surgery [id number] half-way (current) use of s elective estrogen receptor modulators (serms) 06/23/2021 Pain in left foot 06/11/2021 Neuropathy 06/11/2021 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/04/2021 Overview (05/04/2021): Added automatically from request for surgery [id number] Encounter for follow-up exam ination after completed treatment for malignant neoplasm 03/13/2021 Personal history of irradiation 03/13/2021 Anemia 12/12/2020 Encounter for person encountering health service s 09/12/2020 Personal history of malignant neoplasm of breast 08/27/2020 Absence of breast, acquired, bilateral Malignant neoplasm of lower- outer quadrant of left breast of female, estrogen receptor positive 05/03/2020 Cancer Staging:Pathologic:Stage IA(pT1c, pN1a, cM0, G2, ER+, LA+, HER2+) - Signed by Nicole Briseno MD [...] time. Assessment & Plan (12/26/2019 12:10 PM DISPLAY FABRICATOR): -doing well on once a day PPI [...] a calorie intake despite working hard. Will power engineer ensure/diet supplement a twice a day for [...] (08/16/2019): Added automatically from request for surgery [id number] History of colon polyps 08/15/2019 Assessment & [...]
--- OUTSIDE RECORDS SUMMARY | 2024-09-12 08:10 | XMS_ITS | Encounter Summary ---
Author Organization [facility] Address [address] [facility] [place] [address] Phone Care Team Providers Care Electrical Continuity Tester Name Role Phone Lizbeth Macdonald Primary Care Provider [phone] Ralf Medel MD Unavailable Nicole Briseno MD PhD Unavailable [phone] Berry Riley MD Primary Care Provider + [...] st Contact Info) Description 03/19/2025 11:00 AM MANAGER CALL Hospital Encounter [address] [address] Shane Langston DO [address] [place] [address] 03/19/2025 11:00 AM MANAGER CALL - 03/19/2025 11:30 AM MANAGER CALL Surgery [address] [address] Shane Langston, [address] [facility] [place] [address] COLONOSCOPY Scheduled Procedures Name Priority Associated Diagnoses Date/Ti me COLONOSCOPY Screening for colon cancer 03/19/2025 11:00 AM MANAGER CALL documented as of this encounter Procedures Procedure Name Priority Date/Time Associated Diagnosis Comments SCAN - PATHOLOGY 07/25/2020 documented in this encounter Results * SCAN - PATHOLOGY (07/25/2020) us Provider Scanning Final Result documented in this encounter Visit Diagnoses Not on filedocumented in this encounter Care Teams Electrical Continuity Tester Relationship Specialty Start Date End Date Lizbeth Macdonald PA [address] [place] [address] PCP - General Physician Market Garden Worker 07/11/19 09/09/24 Berry Riley MD [address] [facility] [place] [address] PCP - General Internal Medicine 09/10/24 Ralf Medel MD [address] [place] [address] Consulting Physician Medical Oncology 07/15/20 Nicole Briseno MD PhD [address] [place] [address] Radiation Oncologist Radiation Oncology 01/23/21 documented as of this encounter
--- OUTSIDE RECORDS SUMMARY | 2024-09-12 08:10 | XMS_ITS | Clinical Summary ---
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 05/04/2021 Overview (05/04/2021): Added automatically from request for surgery [id number] Encounter for follow-up exam ination after completed treatment for malignant neoplasm 03/13/2021 Personal history of irradiation 03/13/2021 Anemia 12/12/2020 Encounter for person encountering health service s 09/12/2020 Personal history of malignant neoplasm of breast 08/27/2020 Absence of breast, acquired, bilateral 1 Malignant neoplasm of lower- outer quadrant of left breast of female, estrogen receptor positive 05/03/2020 Cancer Staging:Pathologic:Stage IA(pT1c, pN1a, cM0, G2, ER+, AK+, HER2+) - Signed by Nicole Briseno MD [...] time. 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 Will special needs caregiver ensure/diet supplement a twice a day [...] (08/16/2019): Added automatically from request for surgery [id number] History of colon polyps 08/15/2019 Assessment & [...] Description 09/10/2024 Telephone [facility] [address] [place] [address] AmaliaWilian méndeza 09/10/2024 Telephone [facility] [place] [address] [place] [address] Britney Rainey LPN 08/07/2024 Telephone [facility] [place] [facility] [address] [place] [address] Marcela Hines, solid fiber paster operator refill 08/07/2024 Orders Only [facility] [place] [facility] [address] [place] [address] Marcela Hines, RN 07/11/2024 11:00 AM CDT Office Visit [facility] [place] [facility] [address] [place] [address] Floor 8 [place] [phone] Ralf Medel MD Malignant neoplasm of lower-outer quadrant of left breast of female, estrogen receptor positive (HCC) (Primary Dx) 07/11/2024 10:30 AM CDT Lab [facility] - Lab Collection [facility] Floor 5 [place] [address] Malignant neoplasm of lower-outer quadrant of left breast of female, estrogen receptor positive (HCC) 07/11/2024 10:00 AM CDT Clinical Support [facility] [place] [facility] Lab [address] [place] [address] Floor 5 [place] [address] Malignant neoplasm of lower-outer quadrant of left breast of female, estrogen receptor positive (HCC) from Last 3 Months Surgical History Surgery Date Site/Laterality Comments COLONOSCOPY 02/07/2019 - 02/07/2020 last one 08/2019 INDUCED APPENDECTOMY 02/07/1983 - 02/07/1984 4th grade BREAST BIOPSY 05/09/2020 Right ESOPHAGOGASTRODUODENOSCOPY 02/07/2019 - 02/07/2020 last one 08/2019 MASTECTOMY 08/12/2020 Bilateral tissue restaurant crew member placement, port placed BREAST EXCISIONAL BIOPSY 05/08/2020 - 06/06/2020 Left TISSUE SPORTS PHYSICAL THERAPIST REMOVAL 05/08/2021 - 06/06/2021 Left FREE FLAP GRAFT 02/07/2022 - 03/09/2022 Bilateral BELKIS and removal of R tissue restaurant crew member BREAST RECONSTRUCTION 11/19/2022 Bilateral Medical History Medical [...] st Contact Info) Description 03/19/2025 11:00 AM 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 Hospital Encounter [address] [address] Shane Langston DO [address] [place] [address] 03/19/2025 11:00 AM 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 - 03/19/2025 11:30 AM 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 Surgery [address] [address] Shane Langston DO [address] [place] [address] COLONOSCOPY Scheduled Procedures Name Priority Associated Diagnoses Date/Ti me COLONOSCOPY Screening for colon cancer 03/19/2025 11:00 AM 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 Health Maintenance Due Date Last Done Comments [...] Screening-Colonoscopy 08/22/20292019 Medical Devices Implanted Type Area Division Plant Engineer Device Identifier Shelf Expiration Date Model / Serial / Lot [employer] Implant Mammary Natrelle Te Smooth 344z-Gb-19-T With Fourte 815b-Db-79-T - [id number] - [id number] Implanted:Qty: 1 on 11/19/2022 by Finn Stevens MD at [facility] Breast [employer] [id number] 01/12/2027 133S-FX-1 1-T / [id number] / [employer] Natrelle 13cm Style 68mp Smooth Anterior Diaphragm Valve P4.5cm 68-390 - [id number] - [id number] Implanted:Qty: 1 on 11/17/2023 by Finn Stevens MD at [facility] Breast Left: Breast [employer] [id number] 02/05/2026 68-390 / [id number] / [employer] Natrelle 12.7cm Style 68 Textured Anterior Diaphragm Valve Smooth 68-360 - [id number] - [id number] Implanted:Qty: 1 on 11/17/2023 by Finn Stevens MD at [facility] Breast Right: Breast [employer] [id number] 03/25/2026 68-360 / [id number] / [employer]s Stratoscale Salmon 2.5mm Ring Pin Ultrasonic Doppler 20mhz Filling Machine Set Up Mechanic Anastomosis Latex Free 2753 - [id number] Implanted:Qty: 1 on 02/23/2022 by Finn Stevens MD at [facility] Clip Left: Breast [employer] P[employer]R Labpak Allian [id number] 08/18/2026 2753 / / [id number] [employer] [id number] Powerport Clearvue Airguard 8fr 1 Lumen Lightweight Intermediate Latex Free - [id number] Implanted:Qty: 1 on 08/12/2020 by Aft, Tresa Borjas MD PhD at [facility] Right: Breast [employer] [id number] 10/07/2021 [id number] / / [id number] [employer] Allcy Hemoclip Superfine Clip Internal Xdw4558-Vd - [id number] Implanted:Qty: 2 on 02/23/2022 by Finn Stevens MD at [facility] [employer] Allian [id number] 07/07/2026 [id number] F / / [id number] [employer] Allcy Hemoclip Superfine Clip Internal Btc2874-Cg - [id number] Implanted:Qty: 2 on 02/23/2022 by Finn Stevens MD at [facility] [employer] Allian [id number] 02/06/2026 GPN1753-I F / / [id number] [employer] Allian Salmon 2.5mm Ring Pin Ultrasonic Doppler 20mhz Filling Machine Set Up Mechanic Anastomosis Latex Free 2753 - [id number] Implanted:Qty: 1 on 02/23/2022 by Finn Stevens MD at [facility] Right: Breast [employer] Allian [id number] 04/22/2026 2753 / / [id number] [employer] Allian Salmon 2mm Ring Pin Ultrasonic Doppler 20mhz Filling Machine Set Up Mechanic Anastomosis Latex Free 2752 - [id number] Implanted:Qty: 1 on 02/23/2022 by Finn Stevens MD at [facility] Right: Breast [employer] Allcy [id number] 10/02/2026 2752 / / [id number] [employer] Allian Salmon Cartridge Micro Clip Internal Titanium Hemostatic [id number] - [id number] Implanted:Qty: 1 on 02/23/2022 by Finn Stevens MD at [facility] [employer] Allian [id number] 07/07/2026 [id number] / / [id number] [employer] Allian Salmon Cartridge Micro Clip Internal Titanium Hemostatic [id number] - [id number] Implanted:Qty: 2 on 02/23/2022 by Finn Stevens MD at [facility] [employer] Allian [id number] 02/06/2026 [id number] / / [id number] Syn[employer] P&R Labpak James Salmon Cartridge Micro Clip Internal Titanium Hemostatic [id number] - [id number] Implanted:Qty: 3 on 02/23/2022 by Finn Stevens MD at [facility] [employer]s P[employer]R Labpak James [id number] 06/06/2026 [id number] / / [id number] Explanted Type Area Division Plant Engineer Device Identifier Shelf Expiration Date Model / Serial / Lot [employer]er[employer] 941i-Vz-29-T Implant Mammary Natrelle Te Smooth 252w-Gr-07-T With Fourte - [id number] - [id number] Implanted:Qty : 1 on 08/12/2020 by Finn Stevens MD at [facility] Explanted:Qty : 1 on 02/23/2022 by Finn Stevens MD at [facility] Breast Right: Breast [employer] 10/15/2023 133S-FX-1 2-T / [id number] / [employer] Implant Mammary Natrelle Te Smooth 696u-Kx-30-T With Fourte 598n-Vu-14-T - [id number] - [id number] Implanted:Qty : 1 on 11/19/2022 by Finn Stevens MD at [facility] Explanted:Qty : 1 on 11/17/2023 by Finn Stevens MD at [facility] Breast [employer] [id number] 07/03/2026 133S -FX-1 1-T / [id number] / [employer] 712v-Vb-20-T Implant Mammary Natrelle Te Smooth 321y-Qr-58-T With Fourte - [id number] - [id number] Implanted:Qty : 1 on 08/12/2020 by Finn Stevens MD at [facility] Explanted:Qty : 1 on 11/17/[address] [facility] Breast Left: Breast [employer] 03/02/2024 133S-FX-1 2-T / [id number] / Procedures Procedure Name Priority Date/Time Associated [...] MD LAB BLOOD ORDERAB LES Final Result [facility] [place] [address] * (ABNORMAL) Differential, auto (07/11/2024 10:26 AM CDT) Neutrophil abs 4.21 1.50 - 6.50 K/cumm Comment:Testing performed by : [facility], [address] [place] [phone] Lymphocyte abs 1.78 0.80 - 3.30 K/cumm CRYSTAL MOTLEY Comment:Testing performed by : [facility], [address] [place] [phone] Monocyte abs 0.46 0.20 - 0.80 K/cumm CERLENORA BJ Comment:Testing performed by : [facility], [address] [place] [phone] Eosinophil abs 0.61(H) 0.00 - 0.50 K/cumm CERLENORA BJ Comment:Testing performed by : [facility], [address] [place] [phone] Basophil abs 0.07 0.00 - 0.10 K/cumm CERLENORA BJ Comment:Testing performed by : [facility], [address] [place] [phone] Neutrophil pct 59.0 % CERNER BJ Comment: Interpretive Data Percent cell count reference ranges are not reported, since discordance with absolute values may lead to misinterpretation of CBC data. Current Interpretive Data was last revised on 2017. Testing performed by: [facility], [address] [place] [address] Lymphocyte pct 25.0 % CERNER BJ Comment: Interpretive Data Percent cell count reference ranges are not reported, since discordance with absolute values may lead to misinterpretation of CBC data. Current Interpretive Data was last revised on 2017. Testing performed by: [facility], [address] [place] [address] Monocyte pct 6.4 % CRYSTAL MOTLEY Comment: Interpretive Data Percent cell count reference ranges are not reported, since discordance with absolute values may lead to misinterpretation of CBC data. Current Interpretive Data was last revised on 2017. Testing performed by: [facility], [address] [place] [phone] Eosinophil pct 8.5 % CRYSTAL MOTLEY Comment: Interpretive Data Percent cell count reference ranges are not reported, since discordance with absolute values may lead to misinterpretation of CBC data. Current Interpretive Data was last revised on 2017. Testing performed by: [facility], [address] [place] [phone] Basophil pct 1.0 % CRYSTAL MOTLEY Comment: Interpretive Data Percent cell count reference ranges are not reported, since discordance with absolute values may lead to misinterpretation of CBC data. Current Interpretive Data was last revised on 2017. Testing performed by: [facility], [address] [place] [phone] Blood 07/11/2024 10:2 6 AM CDT 07/11/2024 10:29 AM CDT Ralf Medel MD LAB BLOOD ORDERAB LES Final Result CRYSTAL MOTLEY [facility] [place] [address] * CBC with auto differential (07/11/2024 10:26 AM CDT) WBC 7.13 3.80 - 9.90 K/cumm Comment:Testing performed by : [facility], [address] [place] [phone] Hgb 12.6 11.9 - 15.5 g/dL CRYSTAL GARCIA Comment:Testing performed by : [facility], [address] [place] [address] Hct 38.1 35.6 - 45.5 % CERNER BJ Comment:Testing performed by : [facility], [address] [place], [place] [phone] Plt 238 150 - 400 K/cumm CERNER BJ Comment:Testing performed by : [facility], [address] [place], [place] [phone] MPV 8.9 6.8 - 10.4 fL CERNER BJ Comment:Testing performed by : [facility], [address] [place], [place] [phone] RBC 4.21 3.90 - 5.20 M/cumm CERLENORA BJ Comment:Testing performed by : [facility], [address] [place], [place] [phone] MCV 90.5 81.3 - 96.4 fL CERLENORA [facility] Comment:Testing performed by : [facility], [address] [place] [address] MCH 29.9 27.1 - 33.3 pg CERNER [facility] Comment:Testing performed by : [facility], [address] [place] [address] MCHC 33.0 32.3 - 35.7 g/dL CERNER [facility] Comment:Testing performed by : [facility], [address] [place] [address] RDW CV 13.8 11.1 - 14.9 % CERNER [facility] Comment:Testing performed by : [facility], [address] [place] [address] NRBC abs 0.00 0.00 - 0.01 K/cumm CERLENORA [facility] Comment:Testing performed by : [facility], [address] [place] [address] Blood 07/11/2024 10:2 6 AM CDT 07/11/2024 10:29 AM CDT Ralf Medel MD LAB BLOOD ORDERAB LES Final Result Performing Organization Address [facility] de Phone Number [facility] [place] [address] * Estradiol (07/11/2024 10:26 AM CDT) [facility] Estradiol 19.2 pg/mL Comment: Interpretive Data Males: [...] ORDERAB LES Final Result Performing Organization Address [facility] de Phone Number [facility] [place] [address] * Comprehensive metabolic panel (07/11/2024 10:26 AM CDT) [facility] Sodium 139 135 - 145 mmol/L Potassium, pl 4.2 3.3 - 4.9 mmol/L [facility] Chloride 106 97 - 110 mmol/L [facility] CO2 25 22 - 32 mmol/L [facility] Anion gap 8 2 - 15 mmol/L [facility] BUN 17 6 - 25 mg/dL [facility] Creatinine 0.78 0.60 - 1.10 mg/dL [facility] Glucose 95 70 - 199 mg/dL [facility] Comment: Interpretive Data Fasting glucose >/= [...] Calcium 8.9 8.5 - 10.3 mg/dL CERNER [facility] Bilirubin, total 0.2 0.1 - 1.2 mg/dL [facility] Protein, pl 6.6 6.5 - 8.5 g/dL [facility] Albumin 4.0 3.5 - 5.0 g/dL [facility] Alk phos 127 40 - 130 Units/L CERNER [facility] ALT 14 7 - 45 Units/L [facility] AST 22 10 - 45 Units/L [facility] Blood 07/11/2024 10:2 6 AM CDT 07/11/2024 10:30 AM CDT us Ralf Medel MD LAB BLOOD ORDERAB LES Final Result [facility] [place] [address] * COLONOSCOPY (08/23/2019 7:56 AM CDT) Anatomical Region Laterality Modality Other Narrative Procedure Note Guera Kwan MD - 08/23/2019 7:56 AM CDT [facility] Patient Name: Eloise Hall Procedure [...] history of colonic polyps CPT copyright 2017 [employer]. All rights reserved. The codes documented in this report are preliminary and upon impregnation operator reviewmay be revised to meet current compliance requirements. Electronically signed by Aniya Lynne MD Guera Kwan M.D. 08/23/2019 9:24:49 AM This report has been electronically signed by the physician. Number of Addenda: 0 Note Initiated On: 08/23/2019 7:56 AM Guera Kwan MD ENDOSCOPY PROCEDURES Edited R esult - Final from Last 3 Months or Most Recently Relevant to Health Maintenance Insurance [facility] Advance Directives For more information, please contact: [phone] * Full Code (Latest Code Status on File) Date Activated Date Inactivated Comments 02/23/2022 4:32 PM 02/26/2022 1:07 PM * Full Code Date Activated Date Inactivated Comments 08/12/2020 12:49 PM 08/13/2020 7:38 PM Care Teams Card Runner Relationship Specialty Start Date End Date Berry Riley MD [address] [place] [address] PCP - General Internal Medicine 09/10/24 Ralf Medel MD [address] [place] [address] Consulting Physician Medical Oncology 07/15/20 Nicole Briseno MD PhD [address] [place] [address] Radiation Oncologist Radiation Oncology 01/23/21
--- OUTSIDE RECORDS SUMMARY | 2024-09-12 08:10 | XMS_ITS | Encounter Summary ---
Author Organization [facility] Address [address] [place] [address] Phone Care Team Providers Care Valuer Name Role Phone Lizbeth Macdonald Primary Care Provider [phone] Ralf Medel MD Unavailable Nicole Briseno MD PhD Unavailable [phone] Berry Riley MD Primary Care Provider + Encounter Details Date Type Department Care Team (Late st Contact Info) Description 04/30/2020 Telephone [facility] Surgery [address] 5th [place] [address] [place] [address] Tena Hirsch Social History Tobacco [...] st Contact Info) Description 03/19/2025 11:00 AM AX SURVEY WORKER Hospital Encounter [address] [address] Shane Langston, DO [address] [place] [address] 03/19/2025 11:00 AM AX SURVEY WORKER - 03/19/2025 11:30 AM AX SURVEY WORKER Surgery [address] [address] Shane Langston, DO [address] [place] [address] COLONOSCOPY Scheduled Procedures Name Priority Associated Diagnoses Date/Ti me COLONOSCOPY Screening for colon cancer 03/19/2025 11:00 AM AX SURVEY WORKER documented as of this encounter Visit Diagnoses Not on filedocumented in this encounter Care Teams Valuer Relationship Specialty Start Date End Date Lizbeth Macdonald PA [address] [place] [address] PCP - General Physician Clerical Administrative Assistant 07/11/19 09/09/24 Berry Riley MD [facility] [place] [address] PCP - General Internal Medicine 09/10/24 Ralf Medel MD [address] [place] [address] Consulting Physician Medical Oncology 07/15/20 Nicole Briseno MD PhD [address] [place] [address] Radiation Oncologist Radiation Oncology 01/23/21 documented as of this encounter
[2024-09-12 08:39] LABS: Hematocrit 40.5 % (37.0-47.0); Hemoglobin 13.3 g/dL (12.0-15.0); Immature Granulocyte Percent A 2.2 % (0-0.5); Lymphocytes Absolute Auto 2.08 K/mm3 (0.9-3.2); Mean Corpuscular HGB Conc 32.8 g/dl (32-36); Mean Corpuscular Hemoglobin 29.3 pg (26-34); Mean Corpuscular Volume 89.2 fl (80-100); Nucleated Red Blood Cells Absolute Auto 0.000 K/mm3 (0.0-0.012); Nucleated Red Blood Cells Perc 0.0 % (0.0-0.2); Platelet Count Result 295 k/mm3 (150-375); Red Blood Count 4.54 M/mm3 (4.2-5.4); White Blood Count 9.2 K/mm3 (4.5-10.0)
[2024-09-12] MEDS: SODIUM CHLORIDE 0.9% IV 2,000 ML 999 ML IV CONT (08:39)
[2024-09-12] MEDS: PROMETHAZINE HCL 25 MG/ML AMPUL 12.5 MG IV PUSH (08:40)
[2024-09-12] MEDS: PANTOPRAZOLE SODIUM IV 40 MG VIAL IV PUSH (08:40)
[2024-09-12 08:50] LABS: Alanine Aminotransferase 26 U/L (6-35); Albumin Level 4.6 g/dL (3.5-5.1); Alkaline Phosphatase 106 U/L (38-126); Anion Gap 16 mmol/L (4-12); Aspartate Amino Transferase 42 U/L (14-36); Bilirubin,Total 1.0 mg/dL (0.2-1.3); Blood Urea Nitrogen 10 mg/dL (7-17); Calcium 10.2 mg/dL (8.4-10.2); Carbon Dioxide 15 mmol/L (22-30); Chloride 113 mmol/L (98-107); Estimated CRCL calculation 75 ml/min; Estimated Glomerular Filt Rate > 60; Glucose 116 mg/dL (65-110); Lipase 46 U/L (23-300); Potassium 3.0 mmol/L (3.4-5.0); Sodium 144 mmol/L (137-145); Total Protein 7.9 g/dL (6.3-8.2)
[2024-09-12] MEDS: POTASSIUM CHLORIDE 20 MEQ ER TABLET 40 MEQ PO (09:04)
[2024-09-12] MEDS: MORPHINE SULFATE (*CRX) 4 MG/ML INJ IV PUSH (10:42)
[2024-09-12] MEDS: ONDANSETRON INJ 4 MG/2 ML VIAL IV PUSH (10:42)
--- NOTE | 2024-09-12 12:10 | ED_ITS ---
HPI - Nausea/Vomiting/Diarrhea General Chief complaint: Nausea/Vomiting/Diarrhea Stated complaint: n/v, here yesterday Time Seen by Provider: 09/12/24 07:55 History of Present Illness HPI Narrative: Patient is a 49-year-old female who presents ER with nausea vomiting. Seen yesterday for similar issue. History of SMA syndrome. No diarrhea for over 24 hours. No fevers or chills or sweats. Reports she has postnasal drip with cough that then causes her to gag and vomit she has been having recurrent dry heaving. Cannot keep down any food or water. No supportive medications at home. Related Data Home Medications ?Medication ?Instructions ?Recorded ?Confirmed ?Last Taken ?Type atorvastatin 10 mg tablet (Lipitor) 10 mg PO 07/24/19 Unknown History promethazine 25 mg tablet 07/24/19 Unknown History ropinirole 0.5 mg tablet mg 07/24/19 Unknown History ropinirole 2 mg tablet mg 07/24/19 Unknown History Allergies Allergy/AdvReac Type Severity Reaction Status Date / Time acetaminophen Allergy Mild Itching Verified 08/01/19 13:35 ciprofloxacin Allergy Mild Rash Verified 08/01/19 13:35 hydrocodone Allergy Mild Itching Verified 08/01/19 13:35 sulfamethoxazole (From Allergy Rash Verified 08/01/19 13:35 Bactrim) trimethoprim (From Bactrim) Allergy Rash Verified 08/01/19 13:35 Review of Systems 2 Review of Systems: All systems reviewed & are unremarkable except as noted in HPI and below Constitutional: Constitutional: Reports no additional constitutional complaints ENT: Reports system reviewed and no additional complaints, except as documented Cardiovascular: Cardiovascular: Reports no additional cardiovascular complaints Respiratory: Respiratory: Reports no additional respiratory complaints Gastrointestinal: Gastrointestinal: Reports no additional gastrointestinal complaints PMFSH Past Medical History Medical History (Updated 09/12/24 @ 12:28 by Ralf Elise MD) SMAS (superior mesenteric artery syndrome) Surgical History Surgical History History of colonoscopy H/O endoscopy Social History Social History Substance use type: marijuana Gender identity (if verbalized by the patient): Female Exam 2 Narrative: GENERAL: Uncomfortable-appearing, well-nourished, and in no acute distress. HEAD: Normocephalic, atraumatic. ENT: Mucous membranes moist. CHEST: Clear to auscultation. No respiratory distress. HEART: Regular rate and rhythm. Normal peripheral pulses. ABDOMEN: Soft, nontender, nondistended. EXTREMITIES: Normal range of motion. No edema. SKIN: Warm, dry, no rash. NEURO: Alert and oriented x3. PSYCH: Normal mood and affect. Course Course Emergency Course: Feels markedly improved after 2 L IV fluid, Phenergan, Zofran, and morphine. Patient requesting something for cough. She is tolerated p.o. and potassium was replaced. Discharge. Vital Signs Vital signs: Vital Signs Temperature 98 F 09/12/24 07:53 Pulse Rate 97 09/12/24 07:53 Respiratory Rate 20 09/12/24 07:53 Blood Pressure 185/98 H 09/12/24 07:53 Pulse Oximetry 99 09/12/24 07:53 Oxygen Delivery Room Air 09/12/24 07:53 Temperature 98 F 09/12/24 07:53 Pulse Rate 97 09/12/24 07:53 Respiratory Rate 20 09/12/24 07:53 Blood Pressure 185/98 H 09/12/24 07:53 Pulse Oximetry 99 09/12/24 07:53 Oxygen Delivery Room Air 09/12/24 07:53 MDM - Nausea/Vomiting/Diarrhea Lab Data 09/12/24 08:30 09/12/24 08:30 Labs: Lab Results 09/12/24 09/12/24 Range/Units 08:30 10:55 WBC 9.2 (4.5-10.0) K/mm3 RBC 4.54 (4.2-5.4) M/mm3 Hgb 13.3 (12.0-15.0) g/dL Hct 40.5 (37.0-47.0) % MCV 89.2 (80-100) fl MCH 29.3 (26-34) pg MCHC 32.8 (32-36) g/dl RDW 14.6 H (11.5-14.5) % Plt Count 295 (150-375) k/mm3 MPV 10.6 H (7.4-10.4) fl Immature Gran % (Auto) 2.2 H (0-0.5) % Neut % (Auto) 69.3 (45.5-73.1) % Lymph % (Auto) 22.5 (18.3-44.2) % [place] % (Auto) 5.4 (2.6-8.5) % Eos % (Auto) 0.1 (0-4.4) % Baso % (Auto) 0.5 (0.2-1.2) % Lymph # (Auto) 2.08 (0.9-3.2) K/mm3 [place] # (Auto) 0.5 (0.1-0.6) K/mm3 Eos # (Auto) 0.0 (0-0.3) K/mm3 Baso # (Auto) 0.1 (0.0-0.1) K/mm3 Abs Immat Gran (auto) 0.20 H (0.00-0.031) K/mm3 Absolute Neuts (auto) 6.4 (1.3-6.7) K/mm3 Absolute Nucleated RBC 0.000 (0.0-0.012) K/mm3 Nucleated RBC % 0.0 (0.0-0.2) % Sodium 144 (137-145) mmol/L Potassium 3.0 L (3.4-5.0) mmol/L Chloride 113 H (98-107) mmol/L Carbon Dioxide 15 L (22-30) mmol/L Anion Gap 16 H (4-12) mmol/L BUN 10 (7-17) mg/dL Creatinine 0.84 (0.7-1.0) mg/dL Estim Creat Clear Calc 75 ml/min Estimated GFR > 60 (59 - ) Glucose 116 H (65-110) mg/dL Lactic Acid 3.0 H 1.3 (0.7-2.0) mmol/L Calcium 10.2 (8.4-10.2) mg/dL Total Bilirubin 1.0 (0.2-1.3) mg/dL AST 42 H (14-36) U/L ALT 26 (6-35) U/L Alkaline Phosphatase 106 (38-126) U/L Total Protein 7.9 (6.3-8.2) g/dL Albumin 4.6 (3.5-5.1) g/dL Lipase 46 (23-300) U/L Discharge Plan Discharge Clinical Impression: Vomiting, Hypokalemia Patient Disposition: Home Condition: Stable Instructions: Hypokalemia (ED), Acute Nausea and Vomiting (ED) Additional Instructions: Return to the emergency department if you develop severe abdominal pain, severe nausea and vomiting to the point where you are unable to keep down fluids, if you develop chest pain or difficulty breathing, blood in your stool, dizziness or fainting, or if you develop any other new or concerning symptoms as these could be signs of more serious medical illness. Try to stay well hydrated. Patient Language: Vietnamese Prescriptions: New fluticasone propionate [Flonase Allergy Relief] 50 mcg/actuation spray,suspension 1 spray intranasal BID Qty: 16 0RF Rx Instructions: administer into each nostril benzonatate 200 mg capsule 200 mg PO TID Qty: 14 0RF promethazine 25 mg tablet 25 mg PO Q6H PRN (Reason: nausea and vomiting) Qty: 14 0RF No Action atorvastatin [Lipitor] 10 mg tablet 10 mg PO ropinirole 2 mg tablet ropinirole 0.5 mg tablet promethazine 25 mg tablet famotidine [Pepcid] 20 mg tablet 20 mg PO BID Qty: 7 0RF dicyclomine 20 mg tablet 20 mg PO QID Qty: 20 0RF Follow-up/Referrals: Renae,ELIZABETH Beyer [Primary Care Provider] - 1 Week
[2024-09-12] MEDS: BENZONATATE 100 MG CAPSULE 200 MG PO (13:20)
[2024-09-12 13:28] VITALS: BP 158/89; PULSE 84; RESP 16; TEMP 36.6; O2SAT 99
== END 2024-09-12 13:30 | disposition home or self-care (01) ==
PROVIDERS: Emergency Provider Emergency Medicine; PCP Physician Assistant
DX: R11.2 Nausea with vomiting, unspecified (principal); E87.6 Hypokalemia; K55.1 Chronic vascular disorders of intestine
CPT/HCPCS: 36415; 80053; 83605; 83690; 85025; 96361; 96374; 96375; 99284; A9270; J2270; J2405; J2470; J2550; J7030